=== PATIENT | female | born 1960 | race Caucasian/White ===

== ENCOUNTER 2019-03-15 10:24 | Outpatient (CLI) | payer MEDICARE, SELFPAY ==
--- NOTE | ~2019-03-15 | MM_ITS ---
EXAMINATION: MM screening mammo BI HISTORY: Screening mammogram TECHNIQUE: Full field digital craniocaudal and mediolateral oblique views of both breasts were obtain ed. CAD analysis was submitted and interpreted. COMPARISON: 08/10/2016 BREAST PARENCHYMAL COMPOSITION: The breasts are almost entirely fatty. FINDINGS: There is no evidence of suspicious mass, calcification, or architectural distortion in eit her breast to suggest malignancy. There has been no suspicious interval change. IMPRESSION: 1. No mammographic evidence of malignancy. Recommend routine screening mammography in one year. BI-RADS Category 1: Negative Reviewed, dictated and finalized at location A. F WRITER IMPRESSION: 1. No mammographic evidence of malignancy. Recommend routine screening mammogra phy in one year. BI-RADS Category 1: Negative
== END 2019-03-15 10:25 | disposition home or self-care (01) ==
LOC: ANHIMG 10:27
PROVIDERS: PCP Internal Medicine; Visit Provider Internal Medicine
DX: Z12.31 Encounter for screening mammogram for malignant neoplasm of breast (principal)
CPT/HCPCS: 77067

== ENCOUNTER 2019-10-12 11:31 | Outpatient (CLI) | payer MEDICARE, SELFPAY ==
--- NOTE | 2019-10-12 11:32 | ECG_ITS ---
Measurements Intervals [place] Rate: 64 P: 61 SD: 146 QRS: 22 QRSD: 94 T: 43 QT: 393 QTc: 407 Interpretive Statements SINUS RHYTHM DELAYED PRECORDIAL R/S TRANSITION LOW QRS VOLTAGE IN PRECORDIAL LEADS BASELINE ARTIFACT- I, II, III, AVR, AVL, AVF, V1-V6 BORDERLINE ECG Electronically Signed On 10-12-2019 12:25:31 CDT by Josh Roche D.O.
[2019-10-12 12:39] LABS: INR 2.1; Prothrombin Time 22.8 Seconds (11.1-14.7)
[2019-10-12 12:40] LABS: Partial Thromboplastin Time 30.9 SECONDS (22.3-36.8)
== END 2019-10-12 11:32 | disposition home or self-care (01) ==
LOC: ANHSURGERY 11:32
PROVIDERS: Anesthesiology; PCP Internal Medicine; Visit Provider Urology
DX: E78.5 Hyperlipidemia, unspecified (principal); N31.9 Neuromuscular dysfunction of bladder, unspecified; Z51.81 Encounter for therapeutic drug level monitoring; Z79.899 Other long term (current) drug therapy; Z01.812 Encounter for preprocedural laboratory examination; R94.31 Abnormal electrocardiogram [ECG] [EKG]
CPT/HCPCS: 36415; 85610; 85730; 87077; 87086; 87088; 87186; 93005

== ENCOUNTER 2019-10-20 00:26 | Outpatient (CLI) | payer MEDICARE, SELFPAY ==
[2019-10-21 13:40] LABS: SARS-CoV-2 RNA PCR Negative
== END 2019-10-20 00:27 | disposition home or self-care (01) ==
LOC: ANHCOVIDDT 00:26
PROVIDERS: PCP Internal Medicine; Visit Provider Urology
DX: Z01.812 Encounter for preprocedural laboratory examination (principal); Z20.828 Contact with and (suspected) exposure to other viral communicable diseases
CPT/HCPCS: 87635; C9803; U0003

== ENCOUNTER 2019-10-23 01:23 | Day surgery (SDC) | payer MEDICARE, SELFPAY ==
[2019-10-11 11:50] VITALS: BMI 41.5
--- NOTE | 2019-10-19 08:11 | PM.IMHP ---
H&P: HPI History of Present Illness Date/Time: 10/19/19 08:11 Chief complaint: neurogenic bladder Narrative: Rowan Morris is a 58 year old female with neurogenic bladder. She has been treated with Botox in the past. She would like a repeat trial of Botox. If unsuccessful she may pursue suprapubic tube. PMFSH Social History Social History Smoking status: Never smoker Spiritual care concerns: No Meds Home Medications and Allergies Home Medications Medication Instructions Recorded Confirmed Type Cognium 1 cap PO BID 10/10/19 History Ocrevus 1 dose IV .[id number] 10/10/19 10/11/19 History baclofen 30 mg PO BID 10/10/19 10/11/19 History calcium carbonate-vitamin D3 2 tablet PO DAILY 10/10/19 10/11/19 History [Calcium 600 + D(3)] cholecalciferol (vitamin D3) 125 mcg PO DAILY 10/10/19 10/11/19 History [Vitamin D3] escitalopram oxalate 10 mg PO DAILY 10/10/19 10/11/19 History ezetimibe 10 mg PO DAILY 10/10/19 10/11/19 History flaxseed oil 1,000 mg PO BID 10/10/19 10/11/19 History mirabegron [Myrbetriq] 50 mg PO DAILY 10/10/19 10/11/19 History vitamin B comp and C no.3 1 cap PO DAILY 10/10/19 10/11/19 History warfarin 1 mg PO DAILY 10/10/19 10/11/19 History warfarin 10 mg PO DAILY 10/10/19 10/11/19 History clonazepam 0.5 mg PO BID 10/11/19 10/11/19 History docusate sodium [Colace] 200 mg PO DAILY 10/11/19 10/11/19 History glycerin (adult) 1 supp [place] .Q3D 10/11/19 10/11/19 History ketoconazole 1 applic TOPICAL 3XW 10/11/19 10/11/19 History ketoconazole 1 applic TOPICAL 3XW 10/11/19 10/11/19 History multivitamin 2 tablet PO DAILY 10/11/19 10/11/19 History primidone 250 mg PO BID 10/11/19 10/11/19 History propranolol 20 mg PO BID 09/02/20 09/02/20 History Allergies Allergy/AdvReac Type Severity Reaction Status Date / Time Sulfa (Sulfonamide Allergy Mild WATSON, nausea Verified 10/10/19 14:56 Antibiotics) diphenhydramine Allergy Unknown Rash Verified 10/10/19 14:56 naproxen Allergy Unknown Dizziness Verified 10/10/19 14:56 Penicillins Allergy Unknown Rash Verified 10/10/19 14:56 Antihistamines - Alkylamine AdvReac Unknown HEADACHE, Verified 10/10/19 14:56 RASH ANTIHISTAMINE Allergy Unknown Headache, Uncoded 10/10/19 14:56 RASH Exam Const: General: no acute distress HENMT: Mouth: Yes moist mucous membranes Neck: Neck: supple Resp: Effort & Inspection: normal respiratory effort Skin: General skin exam: normal color Neuro: Other: Limited mobility Psych: Mental Status: mental status grossly normal Assessment and Plan Assessment and plan (1) Reflex neurogenic bladder: Code(s): N31.1 - Reflex neuropathic bladder, not elsewhere classified Status: Acute Assessment and Plan: cystoscopy with Botox 200 units. Will do in the operating room due to limited mobility.
--- NOTE | 2019-10-23 07:10 | WPDANESEPPF ---
Anes - Initial Pre Proc Eval Procedure: Operation Date: 10/23/19 08:00 Proposed Procedures p Cystoscopy, Botox Injection - Serg Jones MD Date/Time: 10/23/19 07:10 Surgeon: Serg Jones MD Pre Op Diagnosis: neurogenic bladder Patient Data Age: 58 Gender: F Height: 1.65 m Weight: 112.7 kg Allergies Allergy/AdvReac Type Severity Reaction Status Date / Time Sulfa (Sulfonamide Allergy Mild WATSON, nausea Verified 10/23/19 06:52 Antibiotics) diphenhydramine Allergy Unknown Rash Verified 10/23/19 06:52 naproxen Allergy Unknown Dizziness Verified 10/23/19 06:52 Penicillins Allergy Unknown Rash Verified 10/23/19 06:52 Antihistamines - Alkylamine AdvReac Unknown HEADACHE, Verified 10/23/19 06:52 RASH ANTIHISTAMINE Allergy Unknown Headache, Uncoded 10/23/19 06:52 RASH Home Medications Medication Instructions Recorded Confirmed Type Cognium 1 cap PO BID 10/10/19 History Ocrevus 1 dose IV .[id number] 10/10/19 10/11/19 History baclofen 30 mg PO BID 10/10/19 10/23/19 History calcium carbonate-vitamin D3 2 tablet PO DAILY 10/10/19 10/23/19 History [Calcium 600 + D(3)] cholecalciferol (vitamin D3) 125 mcg PO DAILY 10/10/19 10/23/19 History [Vitamin D3] escitalopram oxalate 10 mg PO DAILY 10/10/19 10/23/19 History ezetimibe 10 mg PO DAILY 10/10/19 10/23/19 History flaxseed oil 1,000 mg PO BID 10/10/19 10/23/19 History mirabegron [Myrbetriq] 50 mg PO DAILY 10/10/19 10/23/19 History vitamin B comp and C no.3 1 cap PO DAILY 10/10/19 10/23/19 History warfarin 1 mg PO DAILY 10/10/19 10/23/19 History warfarin 10 mg PO DAILY 10/10/19 10/23/19 History clonazepam 0.5 mg PO BID 10/11/19 10/23/19 History docusate sodium [Colace] 200 mg PO DAILY 10/11/19 10/23/19 History glycerin (adult) 1 supp [place] .Q3D 10/11/19 10/11/19 History ketoconazole 1 applic TOPICAL 3XW 10/11/19 10/23/19 History ketoconazole 1 applic TOPICAL 3XW 10/11/19 10/23/19 History multivitamin 2 tablet PO DAILY 10/11/19 10/23/19 History primidone 250 mg PO BID 10/11/19 10/23/19 History propranolol 20 mg PO BID 10/11/19 10/23/19 History Patient hx anesthesia problems: none Family hx anesthesia problems: none [facility] Past Medical History Medical History (Updated 10/23/19 @ 07:10 by Jamin Estevez DO) Morbid obesity Multiple sclerosis Neurogenic bladder Wheelchair bound Social History Social History Smoking status: Never smoker Spiritual care concerns: No Anes - Eval Final PreProcedure Day of Procedure 10/23/19 07:10 Patient weight: morbidly obese Heart: regular rate and rhythm Lungs: clear to auscultation and normal air movement Airway: Mallampati scale class IV and special considerations (small mouth) poor opening Neurological: alert and oriented Last oral intake: >/= 8 hours ASA classification: IV Emergent: no Anesthetic plan: proceed Anesthesia type and monitoring: general GIVS and standard monitoring Informed Consent: The patient's anesthetic plan and its attendant risks and benefits were discussed with the patient/family/POA. Questions were solicited and answers provided to the satisfaction of the patient/family/POA.
--- NOTE | 2019-10-23 07:25 | WPDHPUPDATE1 ---
History and Physical Update Update Date/Time: 10/23/19 07:25 History and Physical has been reviewed, including an updated exam of the patient. There are NO changes in the patient's condition. Risks, benefits, and alternatives have been discussed and questions answered. Patient agrees to proceed with procedure.
[2019-10-23] MEDS: LACTATED RINGERS 1,000 ML 30 ML IV CONT (07:39)
[2019-10-23 07:44] VITALS: BP 123/72; PULSE 63; RESP 20; TEMP 35.5; O2SAT 98
--- NOTE | 2019-10-23 07:46 | SUR.PREOP ---
0630; PT IN MOTORIZED W/C. CAREGIVER SHYANN IS HERE. CAREGIVER AND PT DO NOT WANT TO USE SHERLEY LIFT. CAREGIVER TRANSFERRED PT TO STRETCHER.
[2019-10-23 08:00] LABS: INR 1.2; Prothrombin Time 14.7 Seconds (11.1-14.7)
[2019-10-23] MEDS: ceFAZolin 2 GM/D5W 50 ML 2 GM/50 ML BAG IVPB (08:02)
[2019-10-23] MEDS: BOTULINUM TOXIN TYPE A (*SPLP) 100 UNITS VIAL 200 UNITS IM (08:16)
--- NOTE | 2019-10-23 08:23 | PM.PROC ---
Procedure Note - Detailed Date of procedure: 10/23/19 Pre-op diagnosis: neurogenic bladder Post-op diagnosis: same Procedure performed: Cystoscopy with injection of Botox 200 units Description of procedure: She was correctly identified. Informed was obtained. She from the operating room. She was given mac anesthesia. Placed in dorsal lithotomy position. Pressure points were padded. She was given appropriate perioperative antibiotics. Time-out performed. Cystoscopy revealed moderate trabeculations. No tumors or other abnormalities. I mixed 200 units of Botox in 20 cc preservative-free saline. I injected throughout the bladder and the muscular layer. Additional cc was used to clear the needle. There is minimal bleeding from the injection sites. Her bladder was drained. She was awakened and transferred to the PACU in stable condition. Implants: None Anesthesia: MAC Surgeon: Serg Jones MD Estimated blood loss (mL): 1 Drains: No Packing: No Pathology: none sent Complications: No immediate complications Condition: stable Disposition: PACU
[2019-10-23] MEDS: LIDOCAINE HCL 2% GEL UROJET 10 ML PKG MUCOUS MEM (08:25)
[2019-10-23 08:31] VITALS: BP 118/74; PULSE 70; RESP 16; O2SAT 97
[2019-10-23 09:00] VITALS: BP 129/80; PULSE 64; RESP 16; O2SAT 98
== END 2019-10-23 09:24 | disposition home or self-care (01) ==
PROVIDERS: PCP Internal Medicine; Visit Provider Urology
PROC: 3E0K8GC Introduction of Other Therapeutic Substance into Genitourinary Tract, Via Natural or Artificial Opening Endoscopic (ICD-10-PCS; CPT 52287; principal; 2019-10-23 08:00)
DX: N31.9 Neuromuscular dysfunction of bladder, unspecified (principal); G35 Multiple sclerosis; Z79.01 Long term (current) use of anticoagulants; Z99.3 Dependence on wheelchair; E66.01 Morbid (severe) obesity due to excess calories; Z68.41 Body mass index [BMI] 40.0-44.9, adult
CPT/HCPCS: 52287; 36415; 85610; A9270; J0585; J0690; J2704; J7120

== ENCOUNTER → 2020-08-06 01:21 | Outpatient (CLI) | payer MEDICARE, SELFPAY ==
[2020-08-06 17:12] LABS: SARS-CoV-2 RNA PCR Negative
== END ==
PROVIDERS: PCP Internal Medicine; Visit Provider Urology
DX: Z01.812 Encounter for preprocedural laboratory examination (principal); Z20.822 Contact with and (suspected) exposure to COVID-19
CPT/HCPCS: C9803; U0003; U0005

== ENCOUNTER 2020-08-06 09:42 | Outpatient (CLI) | payer MEDICARE, SELFPAY ==
[2020-08-06 10:47] LABS: INR 1.7
[2020-08-06 10:50] LABS: Partial Thromboplastin Time 23.9 SECONDS (22.3-36.8)
== END 2020-08-06 09:43 | disposition home or self-care (01) ==
LOC: ANHSURGERY 09:47
PROVIDERS: Anesthesiology; PCP Internal Medicine; Visit Provider Urology
DX: I82.409 Acute embolism and thrombosis of unspecified deep veins of unspecified lower extremity (principal); N31.1 Reflex neuropathic bladder, not elsewhere classified; Z01.818 Encounter for other preprocedural examination
CPT/HCPCS: 36415; 85610; 85730; 87077; 87086; 87088; 87186; C9803; U0003; U0005

== ENCOUNTER 2020-08-09 01:01 | Day surgery (SDC) | payer MEDICARE, SELFPAY ==
[2020-07-31 09:39] VITALS: BMI 38.5
--- NOTE | 2020-08-05 19:05 | PM.IMHP ---
H&P: HPI History of Present Illness Date/Time: 08/05/20 19:05 59 yo with NGB Botox 200U and CIC Chief Complaint: NBG Review of Systems Review of Systems: All systems reviewed & are unremarkable except as noted in HPI and below [facility] Past Medical History Medical History (Updated 08/05/20 @ 19:07 by Serg Jones MD) Morbid obesity Multiple sclerosis Neurogenic bladder Wheelchair bound Social History Social History Smoking status: Former smoker Additional smoking assessment comments: SOCIAL SMOKER QUIT > 35YRS AGO Alcohol intake: never Substance use: never Spiritual care concerns: No Meds Home Medications and Allergies Home Medications Medication Instructions Recorded Confirmed Type Cognium 1 cap PO BID 10/10/19 07/31/20 History Myrbetriq 50 mg PO DAILY 10/10/19 07/31/20 History Ocrevus 1 dose IV .[id number] 10/10/19 07/31/20 History baclofen 30 mg PO BID 10/10/19 07/31/20 History calcium carbonate-vitamin D3 2 tablet PO DAILY 10/10/19 07/31/20 History [Calcium 600 + D(3)] cholecalciferol (vitamin D3) 125 mcg PO DAILY 10/10/19 07/31/20 History [Vitamin D3] escitalopram oxalate 10 mg PO DAILY 10/10/19 07/31/20 History ezetimibe 10 mg PO DAILY 10/10/19 07/31/20 History flaxseed oil 1,000 mg PO BID 10/10/19 07/31/20 History vitamin B comp and C no.3 1 cap PO DAILY 10/10/19 07/31/20 History warfarin 10 mg PO DAILY 10/10/19 07/31/20 History clonazepam 0.5 mg PO BID 10/11/19 07/31/20 History docusate sodium [Colace] 200 mg PO DAILY 10/11/19 07/31/20 History glycerin (adult) 1 supp [place] .Q3D 10/11/19 07/31/20 History ketoconazole 1 applic TOPICAL 3XW 10/11/19 07/31/20 History ketoconazole 1 applic TOPICAL 3XW 10/11/19 07/31/20 History primidone 250 mg PO BID 10/11/19 07/31/20 History propranolol 20 mg PO BID 10/11/19 07/31/20 History Allergies Allergy/AdvReac Type Severity Reaction Status Date / Time Sulfa (Sulfonamide Allergy Mild WATSON, nausea Verified 07/31/20 08:42 Antibiotics) diphenhydramine Allergy Unknown Rash Verified 07/31/20 08:42 naproxen Allergy Unknown Dizziness Verified 07/31/20 08:42 Penicillins Allergy Unknown Rash Verified 07/31/20 08:42 Antihistamines - Alkylamine AdvReac Unknown HEADACHE, Verified 07/31/20 08:42 RASH ANTIHISTAMINE Allergy Unknown Headache, Uncoded 07/31/20 08:42 RASH Exam Const: General: cooperative HENMT: Head: normal to inspection Eyes: General: appearance normal, both eyes and all related structures Resp: Effort & Inspection: normal respiratory effort and able to speak in complete sentences Back/Spine/Pelvis: Back: no CVA tenderness Assessment and Plan Assessment and plan (1) Neurogenic bladder: Code(s): N31.9 - Neuromuscular dysfunction of bladder, unspecified Status: Acute Assessment and Plan: botox 200U
--- NOTE | 2020-08-09 07:20 | WPDHPUPDATE1 ---
History and Physical Update Update Date/Time: 08/09/20 07:20 History and Physical has been reviewed, including an updated exam of the patient. There are NO changes in the patient's condition. Risks, benefits, and alternatives have been discussed and questions answered. Patient agrees to proceed with procedure.
[2020-08-09 08:12] VITALS: BP 109/43; PULSE 65; RESP 20; TEMP 36.4; O2SAT 100
[2020-08-09] MEDS: LACTATED RINGERS 1,000 ML 30 ML IV CONT (08:35)
[2020-08-09 08:52] LABS: INR 1.2; Prothrombin Time 14.9 Seconds (11.1-14.7)
--- NOTE | 2020-08-09 09:01 | WPDANESEPPF ---
Anes - Initial Pre Proc Eval Procedure: Operation Date: 08/09/20 10:00 Proposed Procedures p Cystoscopy, Botox Injection - Serg Jones MD Date/Time: 08/09/20 09:01 Surgeon: Serg Jones MD Pre Op Diagnosis: reflex neuropathic bladder Patient Data Age: 59 Gender: F Height: 1.65 m Weight: 105 kg Allergies Allergy/AdvReac Type Severity Reaction Status Date / Time Sulfa (Sulfonamide Allergy Mild WATSON, nausea Verified 07/31/20 08:42 Antibiotics) naproxen Allergy Unknown CANNOT Verified 08/09/20 08:50 TAKE R/T WARFARIN Penicillins Allergy Unknown Rash Verified 08/09/20 08:50 Home Medications Medication Instructions Recorded Confirmed Type Cognium 1 cap PO BID 10/10/19 08/09/20 History Myrbetriq 50 mg PO DAILY 10/10/19 08/09/20 History Ocrevus 1 dose IV .[id number] 10/10/19 07/31/20 History baclofen 30 mg PO BID 10/10/19 08/09/20 History calcium carbonate-vitamin D3 2 tablet PO DAILY 10/10/19 08/09/20 History [Calcium 600 + D(3)] cholecalciferol (vitamin D3) 125 mcg PO DAILY 10/10/19 08/09/20 History [Vitamin D3] escitalopram oxalate 10 mg PO DAILY 10/10/19 08/09/20 History ezetimibe 10 mg PO DAILY 10/10/19 08/09/20 History flaxseed oil 1,000 mg PO BID 10/10/19 08/09/20 History vitamin B comp and C no.3 1 cap PO DAILY 10/10/19 08/09/20 History warfarin 10 mg PO DAILY 10/10/19 08/09/20 History clonazepam 0.5 mg PO BID 10/11/19 08/09/20 History docusate sodium [Colace] 200 mg PO DAILY 10/11/19 08/09/20 History glycerin (adult) 1 supp [place] .Q3D 10/11/19 08/09/20 History ketoconazole 1 applic TOPICAL 3XW 10/11/19 08/09/20 History ketoconazole 1 applic TOPICAL 3XW 10/11/19 08/09/20 History primidone 250 mg PO BID 10/11/19 08/09/20 History ciprofloxacin HCl 500 mg PO BID 08/09/20 08/09/20 History propranolol 60 mg PO DAILY 08/09/20 08/09/20 History Laboratory Tests 08/09/20 08:37 PT Pending INR Pending Patient hx anesthesia problems: none Family hx anesthesia problems: none PMFSH Past Medical History Medical History Morbid obesity Multiple sclerosis Neurogenic bladder Wheelchair bound Surgical History Surgical History (Updated 08/09/20 @ 09:01 by Hernan Palmer MD) Hx of cystoscopy Social History Social History Smoking status: Former smoker Additional smoking assessment comments: SOCIAL SMOKER QUIT > 35YRS AGO Alcohol intake: never Substance use: never Living arrangements: alone Spiritual care concerns: No Anes - Eval Final PreProcedure Day of Procedure 08/09/20 09:01 Patient weight: obese Heart: regular rate and rhythm Lungs: clear to auscultation Airway: Mallampati scale class II Neurological: alert and oriented Last oral intake: >/= 8 hours ASA classification: IV Emergent: no Anesthetic plan: proceed Anesthesia type and monitoring: general GIVS and standard monitoring Informed Consent: The patient's anesthetic plan and its attendant risks and benefits were discussed with the patient/family/POA. Questions were solicited and answers provided to the satisfaction of the patient/family/POA.
[2020-08-09] MEDS: ceFAZolin 2 GM/D5W 50 ML 2 GM/50 ML BAG IVPB (09:58)
[2020-08-09] MEDS: BOTULINUM TOXIN TYPE A (*SPLP) 100 UNITS VIAL 200 UNITS XX (10:18)
[2020-08-09] MEDS: LIDOCAINE HCL 2% GEL UROJET 10 ML PKG MUCOUS MEM (10:21)
[2020-08-09 10:28] VITALS: BP 100/44; PULSE 70; RESP 16; O2SAT 97
--- NOTE | 2020-08-09 10:41 | W.PM.PROC2 ---
Procedure Note - Detailed Date of Procedure 08/09/20 Pre-op Diagnosis reflex neuropathic bladder Post-op Diagnosis same Procedure Performed cystoscopy with injection of botulinum toxin a 200 units Surgeon Serg Jones MD Anesthesia MAC Indications this is a patient with urinary incontinence. They are here today for a Botox injection Description of Procedure there correctly identified. Informed consent obtained. There brought to the operating room. There given mac anesthesia. There prepped and draped in sterile fashion. There given appropriate perioperative antibiotics. Time-out performed. Examination of the bladder revealed no significant abnormalities. I mixed 200 units of Botox with 20 mL of saline. It was injected throughout the bladder in the sub urothelial the muscular layer. Additional cc was used to clear the needle. the bladder was drained. There is minimal bleeding under low insufflation pressures. There awakened and transferred to PACU in stable condition. Implants None Estimated Blood Loss 1 Drains No Packing No Pathology none sent Complications No immediate complications Condition stable Disposition PACU
[2020-08-09 10:58] VITALS: BP 102/61; PULSE 65; RESP 20; O2SAT 97
== END 2020-08-09 11:10 | disposition home or self-care (01) ==
PROVIDERS: Anesthesiology; PCP Internal Medicine; Visit Provider Urology
PROC: 3E0K8GC Introduction of Other Therapeutic Substance into Genitourinary Tract, Via Natural or Artificial Opening Endoscopic (ICD-10-PCS; CPT 52287; principal; 2020-08-09 10:00)
DX: N31.1 Reflex neuropathic bladder, not elsewhere classified (principal); N39.3 Stress incontinence (female) (male); Z79.01 Long term (current) use of anticoagulants; G35 Multiple sclerosis; E66.9 Obesity, unspecified; Z68.38 Body mass index [BMI] 38.0-38.9, adult; Z87.891 Personal history of nicotine dependence
CPT/HCPCS: 52287; 36415; 85610; A9270; J0585; J0690; J2250; J2704; J3010; J7120

== ENCOUNTER 2021-03-18 11:16 | Outpatient (CLI) | payer MEDICARE, SELFPAY ==
[2021-03-18 12:24] LABS: INR 2.2; Prothrombin Time 23.8 Seconds (11.1-14.7)
== END 2021-03-18 11:17 | disposition home or self-care (01) ==
LOC: ANHSURGERY 11:21
PROVIDERS: Anesthesiology; PCP Internal Medicine; Visit Provider Urology
DX: N31.9 Neuromuscular dysfunction of bladder, unspecified (principal); Z79.01 Long term (current) use of anticoagulants; Z01.818 Encounter for other preprocedural examination
CPT/HCPCS: 36415; 85610; 85730; 87077; 87086; 87186

== ENCOUNTER 2021-03-21 02:57 | Day surgery (SDC) | payer MEDICARE, SELFPAY ==
--- NOTE | 2021-03-13 14:57 | PC.NURSE ---
Report to the Outpatient Waiting Room, entrance under the green pavilion located off [facility], at time _0730_on date 03/21/21_. OR Time: __929_. - You will be asked a series of questions to screen for COVID 19 for your protection. - A mask is required within the hospital. - No visitors are allowed at this time. YOUR [employer]ESSION[employer], SHYANN WILL BE ABLE TO BE WITH YOU TO ASSIST YOU Preoperative COVID Testing Requirements: No COVID Test needed if: (proof is required; if not received patient will have Rapid Test prior to entry) YOU DO NOT REQUIRE A COVID TEST!! - Patient has received COVID Vaccine at least 14 days prior to procedure date or - Patient has positive COVID test result within last 90 days of surgery date. COVID Test needed if above criteria is not met If not COVID vaccinated a COVID test must be conducted within 72 hours of surgery and patient is asked to isolate self from time of testing until procedure. You will go to the [facility] for your COVID testing. The [facility] is located at the corner of [address] from [facility]. You will only be called if COVID results are positive and your surgeon may reschedule your elective surgery date. Patients may have clear liquids (water, carbonated beverages, clear teas, apple juice) until 3 hours prior to surgery with a maximum of 20 ounces. - No food from midnight until time of surgery - Infants may have breast milk until 4 hours before surgery, formula 6 hours prior to surgery. - Children will be allowed to drink immediately following surgery. If applicable, please bring a bottle or sippy cup to assist with drinking. Juice, water, soda, and popsicles are readily available. For infants on formula, please bring formula the day of surgery. Pacifiers are allowed. Take the following medications with a SIP of water the morning of surgery: PROPANOLOL, ESCITALOPRAM, CLONAZEPAM, BACLOFEN Medications to discontinue per physician ____STOP WARFARIN __STOP ALL SUPPLEMENTS AND VITAMINS Date to take last dose__03/18/21 Please no make-up, nail frisian, hairspray, perfume, deodorant, or body powder the day of surgery. No jewelry (including any body piercings) or valuables the day of surgery, leave them at home. Please take a shower or bath the night before, or the morning of, surgery with an antibacterial soap. Wear comfortable, loose fitting clothing. Children are encouraged to wear pajamas. - Jewelry must be removed prior to entering the operating room. Rings and piercings that are not removed may be cut off. - The hospital will not accept responsibility for valuables. - Please leave all valuables, including medications, at home the day of surgery. If you are going home after surgery, a licensed jitney driver must drive you home. - NO public transportation without another adult. - We recommend that an adult stay with you for 24 hours following discharge. - We also recommend that you do not drive, make important decision, drink alcoholic beverages, or take any drugs that were not prescribed by your health care provider for at least 24 hours after your discharge time. For Pediatric surgeries, we recommend two adults accompany the child home (only one inside the building at this time). Follow any additional instructions given to you from your surgeon. Telephone instructions given to HERO and asked if any additional questions and then verbalized understanding. Patient advised to call surgeon office or pre surgery nurse liaison [phone] if any additional questions.
--- NOTE | 2021-03-16 13:06 | PM.IMHP ---
H&P: HPI History of Present Illness Date/Time: 03/16/21 13:06 Neurogenic bladder. Botox and CIC Chief Complaint: NGB Review of Systems Review of Systems: All systems reviewed & are unremarkable except as noted in HPI and below PMFSH Past Medical History Medical History Morbid obesity Multiple sclerosis Neurogenic bladder Wheelchair bound Surgical History Surgical History Hx of cystoscopy Social History Social History Smoking status: Never smoker Additional smoking assessment comments: SOCIAL SMOKER QUIT > 35YRS AGO Alcohol intake: never Substance use: never Substance use type: does not use Spiritual care concerns: No Meds Home Medications and Allergies Home Medications Medication Instructions Recorded Confirmed Type Cognium 1 cap PO BID 10/10/19 03/13/21 History Myrbetriq 50 mg PO DAILY 10/10/19 03/13/21 History Ocrevus 1 dose IV .[id number] 10/10/19 03/13/21 History baclofen 30 mg PO BID 10/10/19 03/13/21 History calcium carbonate-vitamin D3 2 tablet PO DAILY 10/10/19 03/13/21 History [Calcium 600 + D(3)] cholecalciferol (vitamin D3) 125 mcg PO DAILY 10/10/19 03/13/21 History [Vitamin D3] escitalopram oxalate 10 mg PO DAILY 10/10/19 03/13/21 History ezetimibe 10 mg PO DAILY 10/10/19 03/13/21 History flaxseed oil 1,000 mg PO BID 10/10/19 03/13/21 History vitamin B comp and C no.3 1 cap PO DAILY 10/10/19 03/13/21 History warfarin 10 mg PO DAILY 10/10/19 03/13/21 History clonazepam 0.5 mg PO BID 10/11/19 03/13/21 History docusate sodium [Colace] 200 mg PO DAILY 10/11/19 03/13/21 History glycerin (adult) 1 supp [place] .Q3D 10/11/19 03/13/21 History ketoconazole 1 applic TOPICAL 3XW 10/11/19 03/13/21 History ketoconazole 1 applic TOPICAL 3XW 10/11/19 03/13/21 History primidone 250 mg PO BID 10/11/19 03/13/21 History propranolol 60 mg PO DAILY 08/09/20 03/13/21 History Keto Inforcer 1 tab-cap BYMOUTH TID 03/13/21 03/13/21 History Allergies Allergy/AdvReac Type Severity Reaction Status Date / Time Sulfa (Sulfonamide Allergy Mild WATSON, nausea Verified 07/31/20 08:42 Antibiotics) naproxen Allergy Unknown CANNOT Verified 08/09/20 08:50 TAKE R/T WARFARIN Penicillins Allergy Unknown Rash Verified 08/09/20 08:50 Exam Narrative: NAD limited mobility A+Ox3 Assessment and Plan Assessment and plan (1) Reflex neurogenic bladder: Code(s): N31.1 - Reflex neuropathic bladder, not elsewhere classified Status: Acute Assessment and Plan: botox 200U
--- NOTE | 2021-03-21 07:13 | WPDHPUPDATE1 ---
History and Physical Update Update Date/Time: 03/21/21 07:13 History and Physical has been reviewed, including an updated exam of the patient. There are NO changes in the patient's condition. Risks, benefits, and alternatives have been discussed and questions answered. Patient agrees to proceed with procedure.
--- NOTE | 2021-03-21 08:03 | WPDANESEPP ---
Anes - Eval Pre Procedure Procedure: Operation Date: 03/21/21 09:45 Proposed Procedures p Cystoscopy, Botox Injection - Serg Beverly Jones MD Date/Time: 03/21/21 08:03 Pre Op Diagnosis: reflex neuropathic bladder Patient Data Age: 60 Gender: F Height: 1.66 m Weight: Allergies Allergy/AdvReac Type Severity Reaction Status Date / Time Sulfa (Sulfonamide Allergy Mild WATSON, nausea Verified 07/31/20 08:42 Antibiotics) naproxen Allergy Unknown CANNOT Verified 08/09/20 08:50 TAKE R/T WARFARIN Penicillins Allergy Unknown Rash Verified 08/09/20 08:50 Home Medications Medication Instructions Recorded Confirmed Type Cognium 1 cap PO BID 10/10/19 03/13/21 History Myrbetriq 50 mg PO DAILY 10/10/19 03/13/21 History Ocrevus 1 dose IV .[id number] 10/10/19 03/13/21 History baclofen 30 mg PO BID 10/10/19 03/13/21 History calcium carbonate-vitamin D3 2 tablet PO DAILY 10/10/19 03/13/21 History [Calcium 600 + D(3)] cholecalciferol (vitamin D3) 125 mcg PO DAILY 10/10/19 03/13/21 History [Vitamin D3] escitalopram oxalate 10 mg PO DAILY 10/10/19 03/13/21 History ezetimibe 10 mg PO DAILY 10/10/19 03/13/21 History flaxseed oil 1,000 mg PO BID 10/10/19 03/13/21 History vitamin B comp and C no.3 1 cap PO DAILY 10/10/19 03/13/21 History warfarin 10 mg PO DAILY 10/10/19 03/13/21 History clonazepam 0.5 mg PO BID 10/11/19 03/13/21 History docusate sodium [Colace] 200 mg PO DAILY 10/11/19 03/13/21 History glycerin (adult) 1 supp AK .Q3D 10/11/19 03/13/21 History ketoconazole 1 applic TOPICAL 3XW 10/11/19 03/13/21 History ketoconazole 1 applic TOPICAL 3XW 10/11/19 03/13/21 History primidone 250 mg PO BID 10/11/19 03/13/21 History propranolol 60 mg PO DAILY 08/09/20 03/13/21 History Keto Inforcer 1 tab-cap BYMOUTH TID 03/13/21 03/13/21 History Patient hx anesthesia problems: none Family hx anesthesia problems: none Results Review: All pre-operative results and documents have been reviewed as part of the pre-operative evaluation. [facility] Past Medical History Medical History Hyperlipidemia Morbid obesity Multiple sclerosis Neurogenic bladder Wheelchair bound Surgical History Surgical History Hx of cystoscopy Social History Social History Smoking status: Never smoker Additional smoking assessment comments: SOCIAL SMOKER QUIT > 35YRS AGO Alcohol intake: never Substance use: never Substance use type: does not use Living arrangements: with family Spiritual care concerns: No Exam Day of Procedure 03/21/21 08:03 Patient weight: obese Airway: Mallampati scale class II
--- NOTE | 2021-03-21 08:06 | WPDANESEFPP ---
Anes - Eval Final PreProcedure Day of Procedure 03/21/21 08:06 Patient weight: obese Heart: regular rate and rhythm Lungs: clear to auscultation Airway: Mallampati scale class II Neurological: alert and oriented Last oral intake: >/= 8 hours ASA classification: IV Emergent: no Anesthetic plan: proceed Anesthesia type and monitoring: general GIVS Other findings: GIVS Results Review: All pre-operative results and documents have been reviewed as part of the pre-operative evaluation. Informed Consent: The patient's anesthetic plan and its attendant risks and benefits were discussed with the patient/family/POA. Questions were solicited and answers provided to the satisfaction of the patient/family/POA.
[2021-03-21] MEDS: LACTATED RINGERS 1,000 ML 30 ML IV CONT (08:15)
[2021-03-21 08:39] LABS: INR 1.1; Prothrombin Time 13.7 Seconds (11.1-14.7)
[2021-03-21 09:25] VITALS: BP 105/56; PULSE 62; RESP 20; TEMP 36.2; O2SAT 100
--- NOTE | 2021-03-21 09:42 | SUR.PREOP ---
0750-CAREGIVER WITH PT, PT REFUSES USE OF SHERLEY LIFT, INSISTENT THAT CAREGIVER LIFT HER FROM PT MOTOR CHAIR TO STRETCHER, PT UNDERSTANDS HOSPITAL LIFT POLICY AND ACCEPTS RESPONSIBILITY FOR CAREGIVER TRANSFER.
[2021-03-21] MEDS: ceFAZolin 2 GM/D5W 50 ML 2 GM/50 ML BAG IVPB (09:59)
[2021-03-21] MEDS: BOTULINUM TOXIN TYPE A (*SPLP) 100 UNITS VIAL 200 UNITS XX (10:15)
[2021-03-21] MEDS: LIDOCAINE HCL 2% GEL UROJET 10 ML PKG MUCOUS MEM (10:16)
--- NOTE | 2021-03-21 10:29 | W.PM.PROC2 ---
Procedure Note - Detailed Date of Procedure 03/21/21 Pre-op Diagnosis reflex neuropathic bladder Post-op Diagnosis same Procedure Performed cystoscopy with injection of botulinum toxin a 200 units Surgeon Serg Jones MD Anesthesia MAC Indications this is a patient with urinary incontinence. They are here today for a Botox injection Description of Procedure there correctly identified. Informed consent obtained. There brought to the operating room. Antibiotics were started at home before the surgery for a positive urine culture. She was given appropriate perioperative you antibiotics here in the OR. There given mac anesthesia. There prepped and draped in sterile fashion. Time-out performed. Examination of the bladder revealed a small capacity trabeculated bladder.. I mixed 200 units of Botox with 20mL of saline. It was injected throughout the bladder in the sub urothelial the muscular layer. Additional cc was used to clear the needle. the bladder was drained. There is minimal bleeding under low insufflation pressures. There awakened and transferred to PACU in stable condition. Implants None Estimated Blood Loss 1 Drains No Packing No Pathology none sent Complications No immediate complications Condition stable Disposition PACU
[2021-03-21 10:30] VITALS: BP 92/57; PULSE 66; RESP 14; O2SAT 96
[2021-03-21 11:00] VITALS: BP 98/64; PULSE 70; RESP 16
== END 2021-03-21 11:15 | disposition home or self-care (01) ==
PROVIDERS: Anesthesiology; PCP Internal Medicine; Visit Provider Urology
PROC: 3E0K8GC Introduction of Other Therapeutic Substance into Genitourinary Tract, Via Natural or Artificial Opening Endoscopic (ICD-10-PCS; CPT 52287; principal; 2021-03-21 09:45)
DX: N31.1 Reflex neuropathic bladder, not elsewhere classified (principal); G35 Multiple sclerosis; Z99.3 Dependence on wheelchair; E66.9 Obesity, unspecified; Z68.37 Body mass index [BMI] 37.0-37.9, adult; Z79.01 Long term (current) use of anticoagulants; Z79.899 Other long term (current) drug therapy
CPT/HCPCS: 52287; 36415; 85610; 85730; 87077; 87086; 87186; A9270; J0585; J0690; J2250; J2704; J3010; J7120

== ENCOUNTER 2021-09-01 11:39 | Inpatient (IN) | payer MEDICARE, SELFPAY ==
--- NOTE | ~2021-09-01 | CT_ITS ---
EXAMINATION: CT abdomen pelvis w con DATE: 09/01/2021 14:03 INDICATION: abd pain TECHNIQUE: Computed tomography (CT) of the abdomen and pelvis was performed with 100 mL Omnipaque-300 intravenous contrast. Automated exposure control and iterative reconstruction technique were employe d. The dose-length product was 1229.32 mGy-cm. COMPARISON: None. FINDINGS: Lower thorax: Unremarkable Liver: Normal. Biliary/Gallbladder: Cholelithiasis. Minimal gallbladder wall thickening. No bile duct dilation. Pancreas: No mass or duct dilation. Spleen: Normal. Adrenals:No mass. Kidneys: No mass, stone, or hydronephrosis. GI tract: No small or large bowel dilation. Normal appendix. Mesentery/Peritoneum: No ascites, mass, or free air. Retroperitoneum: No mass. Pelvis: Bladder wall edema. Uterus absent. Soft Tissues: Right gluteal dermal thickening and subcutaneous induration. Bilateral flank edema. Bones: Multilevel concave superior endplate deformities with height loss, most evident at T12, L4, a nd L5. IMPRESSION: Cholelithiasis, with mild pericholecystic inflammatory change which may represent early/mild cholecys titis in the appropriate clinical context. Possible right gluteal skin lesion (such as scar, ulcer, e tc.), correlate clinically. Multilevel mild-moderate osteoporotic vertebral body compression fracture s, likely chronic unless accompanied by acute pain/tenderness. Reviewed, dictated and finalized at location K. IMPRESSION: Cholelithiasis, with mild pericholecystic inflammatory change which may represe nt early/mild cholecystitis in the appropriate clinical context. Possible right gluteal skin lesion (such as scar, ulcer, etc.), correlate clinically. Multile nita mild-moderate osteoporotic vertebral body compression fractures, likely chr onic unless accompanied by acute pain/tenderness.
[2021-09-01 11:54] VITALS: BP 121/65; RESP 16; TEMP 36.4; O2SAT 100
--- NOTE | 2021-09-01 12:50 | ED.ABDPAIN ---
HPI - Abdominal Pain General Chief Complaint: Abdominal Pain Stated Complaint: Abdominal Pain Time Seen by Provider: 09/01/21 12:15 Source: RN notes reviewed History of Present Illness HPI narrative: Presents emergency room from home for abdominal pain. Patient states pain began yesterday evening the pain is described as sharp and stabbing does not radiate associate with nausea patient denies any vomiting she denies any fevers or chills chest pain shortness of breath diarrhea or any other symptoms. Per the patient and family patient does have a history of constipation. Patient states the pain feels better when she sits up and gets worse when she lays back patient did not take any medication for the pain Related Data Home Medications Medication Instructions Recorded Confirmed Cognium 1 cap PO BID 10/10/19 03/21/21 Ocrevus 1 dose IV .[id number] 10/10/19 03/21/21 baclofen 10 mg tablet 30 mg PO BID 10/10/19 03/21/21 calcium carbonate 600 mg-vitamin 2 tablet PO DAILY 10/10/19 03/21/21 D3 5 mcg (200 unit) tablet (Calcium 600 + D(3)) cholecalciferol (vitamin D3) 125 125 mcg PO DAILY 10/10/19 03/21/21 mcg (5,000 unit) tablet (Vitamin D3) escitalopram oxalate 10 mg tablet 10 mg PO DAILY 10/10/19 03/21/21 ezetimibe 10 mg tablet 10 mg PO DAILY 10/10/19 03/21/21 flaxseed oil 1,000 mg capsule 1,000 mg PO BID 10/10/19 03/21/21 mirabegron 50 mg tablet,extended 50 mg PO DAILY 10/10/19 03/21/21 release 24 hr (Myrbetriq) vitamin B comp and C no.3 15 mg-10 1 cap PO DAILY 10/10/19 03/21/21 mg-50 mg-5 mg-300 mg capsule warfarin 10 mg tablet 11 mg PO DAILY 10/10/19 03/21/21 clonazepam 0.5 mg tablet 0.5 mg PO BID 10/11/19 03/21/21 docusate sodium 100 mg capsule 200 mg PO DAILY 10/11/19 03/21/21 (Colace) glycerin (adult) 1 supp RECTAL .Q3D 10/11/19 03/21/21 ketoconazole 2 % shampoo 1 applic topical 3XW 10/11/19 03/21/21 ketoconazole 2 % topical cream 1 applic topical 3XW 10/11/19 03/21/21 primidone 250 mg tablet 250 mg PO BID 10/11/19 03/21/21 propranolol 60 mg capsule,24 60 mg PO DAILY 08/09/20 03/21/21 hr,extended release Allergies Allergy/AdvReac Type Severity Reaction Status Date / Time Sulfa (Sulfonamide Allergy Mild WATSON, nausea Verified 09/01/21 12:26 Antibiotics) naproxen Allergy Unknown CANNOT Verified 09/01/21 12:26 TAKE R/T WARFARIN Penicillins Allergy Unknown Rash Verified 09/01/21 12:26 Review of Systems Review of Systems: Gen.: Denies fevers or chills ENT: Denies congestion Respiratory: Denies shortness of breath or cough CV: Denies chest pain or palpitations GI: See HPI Musculoskeletal: Denies back pain or muscle pain Neuro: Denies numbness, tingling, weakness or focal weakness Skin: Denies rash Except as documented, all other systems reviewed and negative [facility] Past Medical History Medical History Hyperlipidemia Morbid obesity Multiple sclerosis Neurogenic bladder Wheelchair bound Surgical History Surgical History Hx of cystoscopy Social History Social History Smoking status: Never smoker Additional smoking assessment comments: SOCIAL SMOKER QUIT > 35YRS AGO Alcohol intake: never Substance use: never Substance use type: does not use Spiritual care concerns: No Exam Narrative: APPEARANCE: No acute distress, nontoxic, resting in bed HEENT: Normocephalic, atraumatic, OMM RESPIRATORY: No respiratory distress, clear to auscultation bilaterally with no rhonchi wheezing or rales CARDIOVASCULAR: RRR s murmur ABDOMINAL: Soft nondistended tender palpation right upper quadrant right lower quadrant no tenderness left upper quadrant left lower quadrant no rebound or guarding MUSCULOSKELETAl: Moves all extremities. No clubbing, cyanosis or edema. NEURO: Awake and alert. Following commands, speech normal, no f
[2021-09-01 13:23] LABS: Basophils Percent Auto 0.3 % (0.2-1.2); Eosinophils Percent Auto 0.3 % (0-4.4); Hematocrit 49.4 % (37.0-47.0); Hemoglobin 16.2 g/dL (12.0-15.0); Immature Granulocyte Absolute 0.05 K/mm3 (0.00-0.031); Immature Granulocyte Percent A 0.4 % (0-0.5); Lymphocytes Absolute Auto 0.75 K/mm3 (0.9-3.2); Lymphocytes Percent Auto 5.3 % (18.3-44.2); Mean Corpuscular HGB Conc 32.8 g/dl (32-36); Mean Corpuscular Hemoglobin 32.2 pg (26-34); Mean Corpuscular Volume 98.2 fl (80-100); Mean Platelet Volume 10.5 fl (7.4-10.4); Monocytes Absolute Auto 1.4 K/mm3 (0.1-0.6); Monocytes Percent Auto 10.2 % (2.6-8.5); Neutrophils Absolute Auto 11.8 K/mm3 (1.3-6.7); Neutrophils Percent Auto 83.5 % (45.5-73.1); Platelet Count Result 173 k/mm3 (150-375); Red Blood Count 5.03 M/mm3 (4.2-5.4); Red Cell Distribution Width 15.8 % (11.5-14.5); White Blood Count 14.2 K/mm3 (4.5-10.0)
[2021-09-01] MEDS: ONDANSETRON INJ 4 MG/2 ML VIAL IV PUSH (13:29)
[2021-09-01] MEDS: SODIUM CHLORIDE 0.9% IV 1,000 ML 999 ML IV CONT (13:29)
[2021-09-01 13:34] LABS: Alanine Aminotransferase 23 U/L (6-35); Albumin Level 3.9 g/dL (3.5-5.1); Alkaline Phosphatase 110 U/L (38-126); Anion Gap 6 mmol/L (8-16); Aspartate Amino Transferase 24 U/L (14-36); Bilirubin,Total 0.6 mg/dL (0.2-1.3); Blood Urea Nitrogen 15 mg/dL (7-17); Calcium 9.2 mg/dL (8.4-10.2); Carbon Dioxide 31 mmol/L (22-30); Chloride 100 mmol/L (98-107); Estimated CRCL calculation 100 ml/min; Estimated Glomerular Filt Rate > 60; Glucose 123 mg/dL (65-110); Lipase 126 U/L (23-300); Potassium 4.1 mmol/L (3.4-5.0); Sodium 137 mmol/L (137-145)
[2021-09-01 13:59] LABS: Appearance Urine Cloudy (Clear); Bilirubin Urine Negative (Negative); Blood Urine 3+ (Negative); Color Urine Yellow (Yellow); Glucose Urine UA Negative (Negative); Ketones Urine 1+ mg/dL (Negative); Leukocyte Esterase Ur 3+ LEU/UL (Negative); Nitrate Urine Positive (Negative); Protein Urine 1+ mg/dL (Negative); Specific Grav Ur 1.025 (1.001-1.035)
[2021-09-01 14:13] LABS: Bacteria Urine 2+ /hpf; Mucus Urine Moderate /lpf; RBC Urine >75 /hpf (0-2); Squamous Epithelial Cell Urine Occasional /hpf (Few); WBC Urine >75 /hpf
[2021-09-01 14:15] LABS: Add Urine Microscopic? YES
[2021-09-01 14:44] VITALS: PULSE 84; RESP 18; O2SAT 100
[2021-09-01 14:47] VITALS: BP 114/70; PULSE 84; RESP 18; O2SAT 96
[2021-09-01] MEDS: metroNIDAZOLE 500 MG/ISO 100ML 500 MG/100 ML BAG 100 MG IVPB ×2 (15:15→20:22)
[2021-09-01 15:40] LABS: SARS-CoV-2 RNA PCR Negative
--- NOTE | 2021-09-01 16:23 | PM.CNGS ---
Assessment and Plan Assessment and plan (1) Acute cholecystitis: Code(s): K81.0 - Acute cholecystitis Status: Acute Assessment and Plan: I have reviewed the CT and discussed the findings with the patient. She has evidence of acute cholecystitis. She will be admitted to the hospital for further treatment. Due to her long-term anticoagulation, surgery will not be able to be performed until coagulopathy is reversed. Since this does not appear to be emergent at this time, can plan to hold warfarin and give vitamin K to reverse coagulopathy. Could consider FFP transfusion if coagulopathy needs to be reversed quickly. Will follow-up on patient tomorrow to assess symptoms and follow-up labs. I would recommend proceeding with laparoscopic cholecystectomy once she is medically stable and INR is down below 1.4. Surgery will be slightly higher risk to the patient due to her comorbidities. Discussed that she does have an increased risk of bleeding and increased risk perioperative DVT or PE. Could consider bridging anticoagulation with Lovenox while waiting for INR to come down and postoperatively while waiting for INR to be back therapeutic. (2) UTI (urinary tract infection): Code(s): N39.0 - Urinary tract infection, site not specified Status: Acute (3) Multiple sclerosis: Code(s): G35 - Multiple sclerosis Status: Acute (4) History of DVT (deep vein thrombosis): Code(s): Z86.718 - Personal history of other venous thrombosis and embolism Status: Acute (5) Current use of lobsterman anticoagulation: Code(s): Z79.01 - penitentiary (current) use of anticoagulants Status: Acute History of Present Illness Consult details Consult date: 09/01/21 Reason for consult: gallstones Requesting physician: Brady Giron DO Narrative: This is a 60-year-old woman who presented to the emergency department today with right upper quadrant abdominal pain that started last night. She states that she ate pizza for dinner and her pain started shortly after that. She had never experienced pain like this in the past. She did have some nausea but no vomiting. She denies any diarrhea and states that she is usually constipated. She denies any fevers or chills. The patient also has a history of MS and history of DVT. She is essentially bed ridden due to the MS and uses a scooter to get around. She has had multiple DVTs in the past and is on warfarin jail. In the emergency department she was noted to have an elevated white blood count at 14.[address] showed evidence of cholelithiasis with cholecystitis. Review of Systems Review of Systems: All systems reviewed & are unremarkable except as noted in HPI and below Constitutional: Constitutional: Denies chills and Denies fever(s) Eyes: Eyes: Denies change in vision ENT: Denies hearing loss, Denies neck pain and Denies sore throat Cardiovascular: Cardiovascular: Denies chest pain and Denies dyspnea Respiratory: Respiratory: Denies cough, Denies dyspnea and Denies wheezing Gastrointestinal: Gastrointestinal: Reports as per HPI Genitourinary: Genitourinary: Denies hematuria and Denies dysuria Musculoskeletal: Musculoskeletal: Denies arthralgias, Denies joint swelling and Denies neck pain Integumentary/Breasts: Skin/Breast: Reports other ( Patient does have a bedsore that she has been watching and treating) Allergic/Immunologic: Allergic/Immunologic: Denies wheezing [facility] Past Medical History Medical History (Updated 09/01/21 @ 16:31 by Orlin Ko DO) Current use of jail anticoagulation History of DVT (deep vein thrombosis) Hyperlipidemia Morbid obesity Multiple sclerosis Neurogenic bladder Wheelchair bound Surgical History Surgical History (Updated 09/01/21 @ 16:28 by Orlin Ko DO) History of hysterectomy History of tonsillectomy and adenoidectomy Hx of cystoscopy Family History Family History
[2021-09-01 16:31] VITALS: BP 104/63; PULSE 76; RESP 18; O2SAT 94
--- NOTE | 2021-09-01 17:00 | PM.IMHP ---
H&P: HPI History of Present Illness Date/Time: 09/01/21 17:00 Chief Complaint: Abdominal pain. 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 She had pizza for dinner yesterday and sometime during the night she developed a significant aching discomfort in the right upper quadrant which at times is sharp and shooting in nature. The pain does not radiate and she has not noticed any significant aggravating or alleviating factors. She had some nausea and sweats with the pain but no vomiting. She denies having similar symptoms in the past. CT of the abdomen and pelvis today showed cholelithiasis and mild pericholecystic inflammatory changes which may represent early or mild cholecystitis and she is being admitted in this setting. Currently she is feeling a bit better after receiving IV pain medication, rating her pain 3/10. Review of Systems Review of Systems: Twelve systems were reviewed. She denies fever. No recent cold or flu symptoms. No cough or shortness of breath. No chest pain. She has ongoing issues with constipation. She has a neurogenic bladder and does straight catheterization. She has been wheelchair-bound for several years and uses a motorized scooter. She transfers with a slide board. Except as documented, all other systems were reviewed and are negative. 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 Hyperlipidemia Kidney stones Multiple sclerosis Neurogenic bladder Wheelchair bound Surgical History Surgical History (Updated 09/01/21 @ 20:49 by Maira Liao PA-C) History of cystoscopy History of hysterectomy History of lithotripsy History of removal of cyst Left foot. History of tonsillectomy and adenoidectomy History of vascular surgery Right leg venous cut down. Family History Family History Father Gallbladder disease Social History Social History (Updated 09/01/21 @ 20:50 by Maira Liao PA-C) Social History: Surrogate medical decision maker: Dirk Camacho, son. Code status: Full code. Smoking status: Former smoker Additional smoking assessment comments: Smoked socially greater than 35 years ago. Alcohol intake: never Substance use: never Additional living arrangements comments: The patient lives in her own home. She has 2 grown children. Additional occupation/education comments: Disabled. Spiritual care concerns: No Meds Home Medications and Allergies Home Medications Medication Instructions Recorded Confirmed Type Cognium 1 cap PO BID 10/10/19 03/21/21 History Ocrevus 1 dose IV .[id number] 10/10/19 09/01/21 History baclofen 10 mg tablet 30 mg PO BID 10/10/19 09/01/21 History calcium carbonate 600 mg-vitamin 2 tablet PO DAILY 10/10/19 09/01/21 History D3 5 mcg (200 unit) tablet (Calcium 600 + D(3)) cholecalciferol (vitamin D3) 125 125 mcg PO DAILY 10/10/19 09/01/21 History mcg (5,000 unit) tablet (Vitamin D3) escitalopram oxalate 10 mg tablet 10 mg PO DAILY 10/10/19 09/01/21 History ezetimibe 10 mg tablet 10 mg PO DAILY 10/10/19 09/01/21 History flaxseed oil 1,000 mg capsule 1,000 mg PO BID 10/10/19 09/01/21 History mirabegron 50 mg tablet,extended 50 mg PO DAILY 10/10/19 09/01/21 History release 24 hr (Myrbetriq) vitamin B comp and C no.3 15 mg-10 1 cap PO DAILY 10/10/19 09/01/21 History mg-50 mg-5 mg-300 mg capsule warfarin 10 mg tablet 11 mg PO DAILY 10/10/19 09/01/21 History clonazepam 0.5 mg tablet 0.5 mg PO BID 10/11/19 09/01/21 History docusate sodium 100 mg capsule 200 mg PO DAILY 10/11/19 09/01/21 History (Colace) glycerin (adult) 1 supp RECTAL .Q3D 10/11/19 09/01/21 Histo
[2021-09-01 17:13] LABS: INR 2.4; Partial Thromboplastin Time 31.3 SECONDS (22.3-36.8); Prothrombin Time 25.4 Seconds (11.1-14.7)
--- NOTE | 2021-09-01 17:41 | ADMGEN ---
This patient, Rowan Morris, was admitted to [facility] Surg Room 307-01 at 1735. Patient/family oriented to hospital policies and general routines including ID bracelet, bed and alarms, visiting hours, pain management, procedures, bathroom and other care routines, personal items, smoking policy, room service/diet, and visiting hours. Information on how to activate the Rapid Response Team has been discussed. Patient/Family are encouraged to report perceived risks to care and to ask questions if they do not understand what they are told or what they should do.
[2021-09-01] MEDS: SODIUM CHLORIDE 0.9% IV 1,000 ML 125 ML IV CONT (17:46)
[2021-09-01 17:56] VITALS: BMI 37.8
[2021-09-01 17:59] VITALS: BP 105/51; PULSE 74; RESP 16; TEMP 36.2; O2SAT 98; BMI 37.8
[2021-09-01 22:00] VITALS: BP 103/54; PULSE 73; RESP 18; TEMP 35.9; O2SAT 99
[2021-09-02] MEDS: ACETAMINOPHEN 325 MG TABLET 650 MG PO (00:12)
[2021-09-02] MEDS: SODIUM CHLORIDE 0.9% IV 1,000 ML 100 ML IV CONT ×2 (02:30→15:45)
[2021-09-02] MEDS: metroNIDAZOLE 500 MG/ISO 100ML 500 MG/100 ML BAG 100 MG IVPB ×4 (02:46→20:25)
[2021-09-02 06:00] VITALS: BP 99/48; PULSE 89; RESP 18; TEMP 36.1; O2SAT 97
[2021-09-02 06:21] LABS: Basophils Percent Auto 0.4 % (0.2-1.2); Eosinophils Absolute Auto 0.2 K/mm3 (0-0.3); Eosinophils Percent Auto 1.4 % (0-4.4); Hematocrit 43.2 % (37.0-47.0); Hemoglobin 14.4 g/dL (12.0-15.0); Immature Granulocyte Absolute 0.04 K/mm3 (0.00-0.031); Immature Granulocyte Percent A 0.4 % (0-0.5); Immature Platelet Fraction Pct 7.4 % (0.9-11.2); Lymphocytes Absolute Auto 0.88 K/mm3 (0.9-3.2); Lymphocytes Percent Auto 8.4 % (18.3-44.2); Mean Corpuscular HGB Conc 33.3 g/dl (32-36); Mean Corpuscular Hemoglobin 32.1 pg (26-34); Mean Corpuscular Volume 96.4 fl (80-100); Mean Platelet Volume 10.8 fl (7.4-10.4); Monocytes Absolute Auto 1.5 K/mm3 (0.1-0.6); Monocytes Percent Auto 14.3 % (2.6-8.5); Neutrophils Absolute Auto 7.9 K/mm3 (1.3-6.7); Neutrophils Percent Auto 75.1 % (45.5-73.1); Platelet Count Result 140 k/mm3 (150-375); Red Blood Count 4.48 M/mm3 (4.2-5.4); Red Cell Distribution Width 15.8 % (11.5-14.5); White Blood Count 10.5 K/mm3 (4.5-10.0)
[2021-09-02 06:36] LABS: Alanine Aminotransferase 18 U/L (6-35); Albumin Level 3.1 g/dL (3.5-5.1); Alkaline Phosphatase 81 U/L (38-126); Anion Gap 4 mmol/L (8-16); Aspartate Amino Transferase 22 U/L (14-36); Bilirubin,Total 0.6 mg/dL (0.2-1.3); Blood Urea Nitrogen 8 mg/dL (7-17); Carbon Dioxide 28 mmol/L (22-30); Chloride 106 mmol/L (98-107); Estimated CRCL calculation 117 ml/min; Estimated Glomerular Filt Rate > 60; Glucose 88 mg/dL (65-110); Potassium 3.6 mmol/L (3.4-5.0); Sodium 138 mmol/L (137-145)
[2021-09-02] MEDS: PHYTONADIONE ADULT INJ 10 MG in DEXTROSE 5% IN WATER 50 ML 100 MG IVPB ×2 (08:31→21:40)
[2021-09-02 08:33] VITALS: O2SAT 95
--- NOTE | 2021-09-02 08:40 | PM.IMPN ---
Progress Note: A&P Assessment and Plan (1) Acute cholecystitis: Code(s): K81.0 - Acute cholecystitis Status: Acute Assessment and Plan: History and imaging are consistent with acute cholecystitis and she has been started on levofloxacin. Dr. Ko recommends cholecystectomy though she is anticoagulated and thus she will be given vitamin K and her warfarin will be held to allow her INR to drift down. Analgesics available as needed. 09/02: Leukocytosis improved to 10, was 14 yesterday, recheck INR pending. Goal INR less than 1.4 for surgery. Hans repeat INR today at 5pm, if still elevated, will give another dose vitamin K 10 mg IV x 1 at 10pm, 12 hours after the first dose. (2) Abnormal urinalysis: Code(s): R82.90 - Unspecified abnormal findings in urine Status: Acute Assessment and Plan: Patient has no signs or symptoms of urinary tract infection though she has a neurogenic bladder and does straight cath at home. 09/02: Continue Levaquin, follow-up urine culture (3) Current use of buttermaker anticoagulation: Code(s): Z79.01 - assisted (current) use of anticoagulants Status: Acute Assessment and Plan: She is on warfarin for history of recurrent DVTs over the years. Warfarin currently on hold to allow INR to drift down before surgery. May need heparin bridge depending on length of stay. 09/02: Recheck INR pending, will bridge with Lovenox when appropriate Subjective Date/time seen: 09/02/21 08:40 Review of Systems Review of Systems: ? 12 point review of systems was assessed and was negative except as noted in the HPI Exam Narrative: General:??No acute distress, alert and oriented per baseline HEENT:? Atraumatic, normocephalic, mucous membranes moist CV:? Regular rate and rhythm, S1, S2 Lungs:? Clear to auscultation bilaterally, no rales or crackles noted, no wheezes, good air entry Abdomen:? Soft, TTP epigastric and RUQ, no rebounding/guarding Extremities:? Normal to inspection Skin:? No rashes noted, no lesions or wounds seen Psych:? Euthymic, normal affect Objective Data Vital Signs Vital Signs: Vital Signs - 24 hr 09/01/21 11:54 09/01/21 14:44 09/01/21 14:47 Temperature 97.6 F Pulse Rate 84 84 Respiratory Rate 16 18 18 Blood Pressure 121/65 114/70 Pulse Oximetry 100 100 96 Oxygen Delivery 09/01/21 16:31 09/01/21 18:04 09/01/21 17:59 Temperature 97.2 F L Pulse Rate 76 74 Respiratory Rate 18 16 Blood Pressure 104/63 105/51 L Pulse Oximetry 94 98 Oxygen Delivery Room Air 09/01/21 20:00 09/01/21 22:00 09/02/21 06:00 Temperature 96.6 F L 96.9 F L Pulse Rate 73 89 Respiratory Rate 18 18 Blood Pressure 103/54 L 99/48 L Pulse Oximetry 99 97 Oxygen Delivery Room Air 09/02/21 08:33 Temperature Pulse Rate Respiratory Rate Blood Pressure Pulse Oximetry 95 Oxygen Delivery Room Air Intake/Output Intake/Output: Intake & Output 08/30/21 08/31/21 09/01/21 09/02/21 23:59 23:59 23:59 23:59 Intake Total 1450 1000 Output Total 550 Balance 1450 450 Meds/Results Medications: Active Medications Generic Name Dose Route Start Last Admin Trade Name Freq PRN Reason Stop Dose Admin Acetaminophen 650 mg 09/01/21 22:09 09/02/21 00:12 Acetaminophen 325 Mg Tablet PO 650 mg Q6H PRN Administration Mild Pain (1-3) or Fever Hydrocodone Bitart/Acetaminophen 1 tab 09/01/21 22:08 Hydrocodone/Acetaminophen (*Crx) 5-325 Mg Tablet PO Q6H PRN Pain Rated 4-6 Baclofen 30 mg 09/02/21 09:00 Baclofen 10 Mg Tablet PO BID [facility] Calcium Carbonate 1,000 mg 09/02/21 09:00 Calcium/Vitamin D 500 Mg Tablet PO 10/02/21 08:59 DAILY MARBELLA Clonazepam 0.5 mg 09/02/21 09:00 Clonazepam (*Crx) 0.5 Mg Tablet PO BID MARBELLA Docusate Sodium 200 mg 09/02/21 09:00 Docusate Sodium 100 Mg Capsule PO DAILY MARBELLA Ezetimibe 10 mg 09/02/21 09:00 Ezetimibe
--- NOTE | 2021-09-02 08:55 | PM.PNGS ---
Progress Note: A&P Assessment and Plan (1) Acute cholecystitis: Code(s): K81.0 - Acute cholecystitis Status: Acute Assessment and Plan: Will try clear liquids today Vit K IV ordered for today, continue to follow INR. Will proceed with Lap sohail once INR normalized. 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 No fevers. Exam GI: Inspection: non-distended and obesity GI Palp: Yes Soft to palpation, Yes Tenderness to palpation present (GI) (RUQ) and No Guarding due to palpation present (GI) Objective Data Vital Signs Vital Signs: Vital Signs - 24 hr 09/01/21 11:54 09/01/21 14:44 09/01/21 14:47 Temperature 36.4 C Pulse Rate 84 84 Respiratory Rate 16 18 18 Blood Pressure 121/65 114/70 Pulse Oximetry 100 100 96 Oxygen Delivery 09/01/21 16:31 09/01/21 18:04 09/01/21 17:59 Temperature 36.2 C L Pulse Rate 76 74 Respiratory Rate 18 16 Blood Pressure 104/63 105/51 L Pulse Oximetry 94 98 Oxygen Delivery Room Air 09/01/21 20:00 09/01/21 22:00 09/02/21 06:00 Temperature 35.9 C L 36.1 C L Pulse Rate 73 89 Respiratory Rate 18 18 Blood Pressure 103/54 L 99/48 L Pulse Oximetry 99 97 Oxygen Delivery Room Air 09/02/21 08:33 Temperature Pulse Rate Respiratory Rate Blood Pressure Pulse Oximetry 95 Oxygen Delivery Room Air Intake/Output Intake/Output: Intake & Output 08/30/21 08/31/21 09/01/21 09/02/21 23:59 23:59 23:59 23:59 Intake Total 1450 1000 Output Total 550 Balance 1450 450 Meds/Results Medications: Active Medications Generic Name Dose Route Start Last Admin Trade Name Freq PRN Reason Stop Dose Admin Acetaminophen 650 mg 09/01/21 22:09 09/02/21 00:12 Acetaminophen 325 Mg Tablet PO 650 mg Q6H PRN Administration Mild Pain (1-3) or Fever Hydrocodone Bitart/Acetaminophen 1 tab 09/01/21 22:08 Hydrocodone/Acetaminophen (*Crx) 5-325 Mg Tablet PO Q6H PRN Pain Rated 4-6 Baclofen 30 mg 09/02/21 09:00 Baclofen 10 Mg Tablet PO BID [facility] Calcium Carbonate 1,000 mg 09/02/21 09:00 Calcium/Vitamin D 500 Mg Tablet PO 10/02/21 08:59 DAILY [facility] Clonazepam 0.5 mg 09/02/21 09:00 Clonazepam (*Crx) 0.5 Mg Tablet PO BID [facility] Docusate Sodium 200 mg 09/02/21 09:00 Docusate Sodium 100 Mg Capsule PO DAILY [facility] Ezetimibe 10 mg 09/02/21 09:00 Ezetimibe 10 Mg Tablet PO DAILY [facility] Escitalopram Oxalate 10 mg 09/02/21 09:00 Escitalopram Oxalate 10 Mg Tablet PO DAILY [facility] Glycerin 1 supp 09/02/21 09:00 Glycerin Adult 1 Supp.Rect RECTAL Q72H [facility] Metronidazole 500 mg in 100 mls @ 100 mls/hr 09/01/21 21:00 09/02/21 05:11 Flagyl 500 Mg/Iso Soln 100 Ml IVPB 0 mls/hr Q6H [facility] Infusion Levofloxacin/Dextrose 750 mg in 150 mls @ 100 mls/hr 09/02/21 16:00 Levaquin 750 Mg/D5w 150 Ml IVPB Q24H [facility] Sodium Chloride 1,000 mls @ 100 mls/hr 09/01/21 15:30 09/02/21 02:30 Normal Saline Iv IV CONT 100 mls/hr .Q10H MARBELLA Administration Mirabegron 50 mg 09/02/21 09:00 Mirabegron 50 Mg Er Tablet PO DAILY [facility] Miscellaneous Information 1 each 09/01/21 00:01 Ketoconazole Cream Needs Clarified Where To Apply And What Days. Usually Used Daily Not 3 XX 10/01/21 00:00 CLARIFY MARBELLA Miscellaneous Information 1 each 09/01/21 00:01 Ketoconazole Shampoo Needs Days Of Week Due. W
[2021-09-02 09:18] LABS: INR 2.7; Prothrombin Time 27.8 Seconds (11.1-14.7)
[2021-09-02 11:20] VITALS: BP 106/71
[2021-09-02] MEDS: EZETIMIBE 10 MG TABLET PO (11:23)
[2021-09-02] MEDS: CHOLECALCIFEROL 1,000 UNITS TABLET 5000 UNITS PO (11:23)
[2021-09-02] MEDS: BACLOFEN 10 MG TABLET 30 MG PO ×2 (11:24→18:02)
[2021-09-02] MEDS: ESCITALOPRAM OXALATE 10 MG TABLET PO (11:24)
[2021-09-02] MEDS: PRIMIDONE 250 MG TABLET PO ×2 (11:24→18:01)
[2021-09-02] MEDS: DOCUSATE SODIUM 100 MG CAPSULE 200 MG PO (11:24)
[2021-09-02 11:25] VITALS: PULSE 95
[2021-09-02] MEDS: MIRABEGRON 50 MG ER TABLET PO (11:25)
[2021-09-02] MEDS: PROPRANOLOL HCL 60 MG CAPSULE CR PO (11:25)
[2021-09-02] MEDS: clonazePAM (*CRX) 0.5 MG TABLET PO ×2 (11:27→18:02)
[2021-09-02] MEDS: VITAMIN B COMPLEX/VIT C CAPSULE 1 EACH PO (11:30)
[2021-09-02 14:00] VITALS: BP 112/52; PULSE 95; RESP 18; TEMP 36.5; O2SAT 99
[2021-09-02] MEDS: PHYTONADIONE 5 MG TABLET 10 MG PO (15:44)
[2021-09-02 18:02] LABS: INR 1.6; Prothrombin Time 18.4 Seconds (11.1-14.7)
[2021-09-02 22:00] VITALS: BP 104/52; PULSE 96; RESP 18; TEMP 36.4; O2SAT 94
[2021-09-03] MEDS: metroNIDAZOLE 500 MG/ISO 100ML 500 MG/100 ML BAG 100 MG IVPB ×4 (02:37→21:31)
[2021-09-03] MEDS: SODIUM CHLORIDE 0.9% IV 1,000 ML 100 ML IV CONT (05:51)
[2021-09-03 06:00] VITALS: BP 105/45; PULSE 86; RESP 18; TEMP 36.4; O2SAT 95
[2021-09-03 06:00] LABS: Basophils Percent Auto 0.3 % (0.2-1.2); Eosinophils Absolute Auto 0.2 K/mm3 (0-0.3); Eosinophils Percent Auto 1.3 % (0-4.4); Hematocrit 41.7 % (37.0-47.0); Hemoglobin 13.8 g/dL (12.0-15.0); Immature Granulocyte Absolute 0.06 K/mm3 (0.00-0.031); Immature Granulocyte Percent A 0.5 % (0-0.5); Immature Platelet Fraction Pct 7.6 % (0.9-11.2); Lymphocytes Absolute Auto 0.86 K/mm3 (0.9-3.2); Lymphocytes Percent Auto 7.4 % (18.3-44.2); Mean Corpuscular HGB Conc 33.1 g/dl (32-36); Mean Corpuscular Hemoglobin 32.1 pg (26-34); Mean Platelet Volume 10.9 fl (7.4-10.4); Monocytes Absolute Auto 1.6 K/mm3 (0.1-0.6); Monocytes Percent Auto 13.5 % (2.6-8.5); Platelet Count Result 141 k/mm3 (150-375); Red Cell Distribution Width 15.7 % (11.5-14.5); White Blood Count 11.7 K/mm3 (4.5-10.0)
[2021-09-03 06:10] LABS: INR 1.4; Prothrombin Time 17.1 Seconds (11.1-14.7)
[2021-09-03 06:18] LABS: Alanine Aminotransferase 16 U/L (6-35); Alkaline Phosphatase 78 U/L (38-126); Anion Gap 5 mmol/L (8-16); Aspartate Amino Transferase 18 U/L (14-36); Bilirubin,Total 0.8 mg/dL (0.2-1.3); Blood Urea Nitrogen 6 mg/dL (7-17); Calcium 7.9 mg/dL (8.4-10.2); Carbon Dioxide 25 mmol/L (22-30); Chloride 107 mmol/L (98-107); Estimated CRCL calculation 142 ml/min; Estimated Glomerular Filt Rate > 60; Glucose 83 mg/dL (65-110); Potassium 3.2 mmol/L (3.4-5.0); Sodium 137 mmol/L (137-145)
--- NOTE | 2021-09-03 07:36 | PM.PNGS ---
Progress Note: A&P Assessment and Plan (1) Acute cholecystitis: Code(s): K81.0 - Acute cholecystitis Status: Acute Assessment and Plan: INR still 1.4. Will plan for lap sohail tomorrow as long as INR comes down a little further. OK for clear liquids today. 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 Tolerating clear liquids. Exam GI: GI Palp: Yes Soft to palpation, Yes Tenderness to palpation present (GI) (RUQ) and No Guarding due to palpation present (GI) Objective Data Vital Signs Vital Signs: Vital Signs - 24 hr 09/02/21 08:33 09/02/21 09:10 09/02/21 11:25 Temperature Pulse Rate 95 Respiratory Rate Blood Pressure Pulse Oximetry 95 Oxygen Delivery Room Air Room Air 09/02/21 11:20 09/02/21 14:00 09/02/21 20:00 Temperature 36.5 C Pulse Rate 95 Respiratory Rate 18 Blood Pressure 106/71 112/52 L Pulse Oximetry 99 Oxygen Delivery Room Air 09/02/21 22:00 09/03/21 06:00 Temperature 36.4 C 36.4 C L Pulse Rate 96 86 Respiratory Rate 18 18 Blood Pressure 104/52 L 105/45 L Pulse Oximetry 94 95 Oxygen Delivery Intake/Output Intake/Output: Intake & Output 08/31/21 09/01/21 09/02/21 09/03/21 23:59 23:59 23:59 23:59 Intake Total 1450 3361 1300 Output Total 1200 850 Balance 1450 2161 450 Meds/Results Medications: Active Medications Generic Name Dose Route Start Last Admin Trade Name Freq PRN Reason Stop Dose Admin Acetaminophen 650 mg 09/01/21 22:09 09/02/21 00:12 Acetaminophen 325 Mg Tablet PO 650 mg Q6H PRN Administration Mild Pain (1-3) or Fever Hydrocodone Bitart/Acetaminophen 1 tab 09/01/21 22:08 Hydrocodone/Acetaminophen (*Crx) 5-325 Mg Tablet PO Q6H PRN Pain Rated 4-6 Baclofen 30 mg 09/02/21 09:00 09/02/21 18:02 Baclofen 10 Mg Tablet PO 30 mg BID MARBELLA Administration Calcium Carbonate 1,000 mg 09/02/21 09:00 09/02/21 11:24 Calcium/Vitamin D 500 Mg Tablet PO 10/02/21 08:59 1,000 mg DAILY [facility] Administration Clonazepam 0.5 mg 09/02/21 09:00 09/02/21 18:02 Clonazepam (*Crx) 0.5 Mg Tablet PO 0.5 mg BID MAR[facility]A Administration Docusate Sodium 200 mg 09/02/21 09:00 09/02/21 11:24 Docusate Sodium 100 Mg Capsule PO 200 mg DAILY [facility] Administration Ezetimibe 10 mg 09/02/21 09:00 09/02/21 11:23 Ezetimibe 10 Mg Tablet PO 10 mg DAILY [facility] Administration Escitalopram Oxalate 10 mg 09/02/21 09:00 09/02/21 11:24 Escitalopram Oxalate 10 Mg Tablet PO 10 mg DAILY [facility] Administration Glycerin 1 supp 09/02/21 09:00 09/02/21 08:20 Glycerin Adult 1 Supp.Rect RECTAL Not Given Q72H [facility] Metronidazole 500 mg in 100 mls @ 100 mls/hr 09/01/21 21:00 09/03/21 03:40 Flagyl 500 Mg/Iso Soln 100 Ml IVPB Infused Q6H [facility] Infusion Levofloxacin/Dextrose 750 mg in 150 mls @ 100 mls/hr 09/02/21 16:00 09/02/21 17:14 Levaquin 750 Mg/D5w 150 Ml IVPB Infused Q24H [facility] Infusion Sodium Chloride 1,000 mls @ 100 mls/hr 09/01/21 15:30 09/03/21 05:51 Normal Saline Iv IV CONT 100 mls/hr .Q10H [facility] Administration Mirabegron 50 mg 09/02/21 09:00 09/02/21 11:25 Mirabegron 50 Mg Er Tablet PO 50 mg DAILY [facility] Administration Miscellaneous Information 1 each 09/01/21 00:01 Ketoconazole Cream Needs Clarified Where To Apply And What Days. Usually Used Daily Not 3 XX 10/01/21 00:00 JOHNNIE Burton
[2021-09-03] MEDS: MIRABEGRON 50 MG ER TABLET PO (09:29)
[2021-09-03] MEDS: DOCUSATE SODIUM 100 MG CAPSULE 200 MG PO (09:29)
[2021-09-03] MEDS: VITAMIN B COMPLEX/VIT C CAPSULE 1 EACH PO (09:29)
[2021-09-03] MEDS: PRIMIDONE 250 MG TABLET PO ×2 (09:29→17:33)
[2021-09-03] MEDS: ESCITALOPRAM OXALATE 10 MG TABLET PO (09:29)
[2021-09-03] MEDS: EZETIMIBE 10 MG TABLET PO (09:29)
[2021-09-03] MEDS: CHOLECALCIFEROL 1,000 UNITS TABLET 5000 UNITS PO (09:29)
[2021-09-03 09:34] VITALS: PULSE 76
[2021-09-03] MEDS: PROPRANOLOL HCL 60 MG CAPSULE CR PO (09:34)
[2021-09-03] MEDS: BACLOFEN 10 MG TABLET 30 MG PO ×2 (09:35→17:34)
[2021-09-03] MEDS: clonazePAM (*CRX) 0.5 MG TABLET PO ×2 (09:35→17:40)
[2021-09-03 10:26] VITALS: BMI 39.8
[2021-09-03 12:20] VITALS: BP 119/56; PULSE 81; RESP 16; TEMP 35.9; O2SAT 95
--- NOTE | 2021-09-03 13:37 | WPDANESEPPF ---
Anes - Initial Pre Proc Eval Procedure: Operation Date: 09/04/21 10:30 Proposed Procedures p Laparoscopic Cholecystectomy,Possible Open - Orlin Ko DO Date/Time: 09/03/21 13:37 Surgeon: Alfonso Reich MD Pre Op Diagnosis: Cholecystitis/UTI Patient Data Age: 60 Gender: F Height: 1.65 m Weight: 108.5 kg Last Vital Signs Temp 36.4 C L 09/03/21 06:00 Pulse 76 09/03/21 09:34 Resp 18 09/03/21 06:00 BP 105/45 L 09/03/21 06:00 Pulse Ox 95 09/03/21 06:00 O2 Del Method Room Air 09/03/21 09:30 Allergies Allergy/AdvReac Type Severity Reaction Status Date / Time Sulfa (Sulfonamide Allergy Mild WATSON, nausea Verified 09/01/21 12:26 Antibiotics) naproxen Allergy Unknown CANNOT Verified 09/01/21 12:26 TAKE R/T WARFARIN Penicillins Allergy Unknown Rash Verified 09/01/21 12:26 Home Medications Medication Instructions Recorded Confirmed Type Ocrevus 1 dose IV .[id number] 10/10/19 09/01/21 History baclofen 10 mg tablet 30 mg PO BID 10/10/19 09/01/21 History calcium carbonate 600 mg-vitamin 2 tablet PO DAILY 10/10/19 09/01/21 History D3 5 mcg (200 unit) tablet (Calcium 600 + D(3)) cholecalciferol (vitamin D3) 125 125 mcg PO DAILY 10/10/19 09/01/21 History mcg (5,000 unit) tablet (Vitamin D3) escitalopram oxalate 10 mg tablet 10 mg PO DAILY 10/10/19 09/01/21 History ezetimibe 10 mg tablet 10 mg PO DAILY 10/10/19 09/01/21 History flaxseed oil 1,000 mg capsule 1,000 mg PO BID 10/10/19 09/01/21 History mirabegron 50 mg tablet,extended 50 mg PO DAILY 10/10/19 09/01/21 History release 24 hr (Myrbetriq) vitamin B comp and C no.3 15 mg-10 1 cap PO DAILY 10/10/19 09/01/21 History mg-50 mg-5 mg-300 mg capsule warfarin 10 mg tablet 11 mg PO DAILY 10/10/19 09/01/21 History clonazepam 0.5 mg tablet 0.5 mg PO BID 10/11/19 09/01/21 History docusate sodium 100 mg capsule 200 mg PO DAILY 10/11/19 09/01/21 History (Colace) glycerin (adult) 1 supp RECTAL .Q3D 10/11/19 09/01/21 History ketoconazole 2 % shampoo 1 applic topical 3XW 10/11/19 09/01/21 History ketoconazole 2 % topical cream 1 applic topical 3XW 10/11/19 09/01/21 History primidone 250 mg tablet 250 mg PO BID 10/11/19 09/01/21 History propranolol 60 mg capsule,24 60 mg PO DAILY 08/09/20 09/01/21 History hr,extended release Laboratory Tests 09/02/21 09/03/21 09/03/21 17:39 05:35 05:35 WBC 11.7 K/mm3 H K/mm3 (4.5-10.0) RBC 4.30 M/mm3 M/mm3 (4.2-5.4) Hgb 13.8 g/dL g/dL (12.0-15.0) Hct 41.7 % % (37.0-47.0) MCV 97.0 fl fl (80-100) MCH 32.1 pg pg (26-34) MCHC 33.1 g/dl g/dl (32-36) RDW 15.7 % H % (11.5-14.5) Plt Count 141 k/mm3 L k/mm3 (150-375) MPV 10.9 fl H fl (7.4-10.4) Immature Gran % (Auto) 0.5 % % (0-0.5) Neut % (Auto) 77.0 % H % (45.5-73.1) Lymph % (Auto) 7.4 % L % (18.3-44.2) [place] % (Auto) 13.5 % H % (2.6-8.5) Eos % (Auto) 1.3 % % (0-4.4) Baso % (Auto) 0.3 % % (0.2-1.2) Lymph # (Auto) 0.86 K/mm3 L K/mm3 (0.9-3.2) [place] # (Auto) 1.6 K/mm3 H K/mm3 (0.1-0.6) Eos # (Auto) 0.2 K/mm3 K/mm3 (0-0.3) Baso # (Auto) 0.0 K/mm3 K/mm3 (0.0-0.1) Abs Immat Gran (auto) 0.06 K/mm3 H K/mm3 (0.00-0.031) Absolute Neuts (auto) 9.0 K/mm3 H K/mm3 (1.3-6.7) Absolute Nucleated RBC 0.0 K/mm3 K/mm3 (0.0-0.012) Nucleated RBC % 0.0 % % (0.0-0.2) % Immature Plt Fraction 7.6 % % (0.9-11.2) PT 18.4 Seconds H D Seconds 17.1 Seconds H Seconds (11.1-14.7) (11.1-14.7) INR 1.6 1.4 Sodium Potassium Chloride Carbon Dioxide Anion Gap BUN Creatinine Estim Creat Clear Calc Estimated GFR Glucose Calc
--- NOTE | 2021-09-03 15:00 | PM.IMPN ---
Progress Note: A&P Assessment and Plan (1) Acute cholecystitis: Code(s): K81.0 - Acute cholecystitis Status: Acute Assessment and Plan: History and imaging are consistent with acute cholecystitis and she has been started on levofloxacinAnd Flagyl. Dr. Ko recommends cholecystectomy though she is anticoagulated and thus she will be given vitamin K and her warfarin will be held to allow her INR to drift down. Analgesics available as needed. received vitamin K INR 1.4. Planned cholecystectomy in a.m. (2) Abnormal urinalysis: Code(s): R82.90 - Unspecified abnormal findings in urine Status: Acute Assessment and Plan: Patient has no signs or symptoms of urinary tract infection though she has a neurogenic bladder and does straight cath at home. continue Levaquin Urine culture with E coli. 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 Warfarin currently on hold to allow INR to drift down before surgery. May need heparin bridge depending on length of stay. Plan replace potassium Subjective Date/time seen: 09/03/21 15:00 Interval history: no overnight events. Abdominal pain persists. Some nausea no vomiting. Plan for surgery in the morning Review of Systems Review of Systems: All systems reviewed & are unremarkable except as noted in HPI and below Exam Narrative: General:??No acute distress, alert and oriented per baseline HEENT:? Atraumatic, normocephalic, mucous membranes moist CV:? Regular rate and rhythm, S1, S2 Lungs:? Clear to auscultation bilaterally, no rales or crackles noted, no wheezes, good air entry Abdomen:? Soft, TTP epigastric and RUQ, no rebounding/guarding Extremities:? Normal to inspection Skin:? No rashes noted, no lesions or wounds seen Psych:? Euthymic, normal affect Objective Data Vital Signs Vital Signs: Vital Signs - 24 hr 09/02/21 20:00 09/02/21 22:00 09/03/21 06:00 Temperature 97.6 F 97.5 F L Pulse Rate 96 86 Respiratory Rate 18 18 Blood Pressure 104/52 L 105/45 L Pulse Oximetry 94 95 Oxygen Delivery Room Air 09/03/21 09:34 09/03/21 09:30 Temperature Pulse Rate 76 Respiratory Rate Blood Pressure Pulse Oximetry Oxygen Delivery Room Air Intake/Output Intake/Output: Intake & Output 08/31/21 09/01/21 09/02/21 09/03/21 23:59 23:59 23:59 23:59 Intake Total 1450 3361 1622 Output Total 1200 850 Balance 1450 2161 772 Meds/Results Medications: Active Medications Generic Name Dose Route Start Last Admin Trade Name Freq PRN Reason Stop Dose Admin Acetaminophen 650 mg 09/01/21 22:09 09/02/21 00:12 Acetaminophen 325 Mg Tablet PO 650 mg Q6H PRN Administration Mild Pain (1-3) or Fever Hydrocodone Bitart/Acetaminophen 1 tab 09/01/21 22:08 Hydrocodone/Acetaminophen (*Crx) 5-325 Mg Tablet PO Q6H PRN Pain Rated 4-6 Baclofen 30 mg 09/02/21 09:00 09/03/21 09:35 Baclofen 10 Mg Tablet PO 30 mg BID [facility] Administration Calcium Carbonate 1,000 mg 09/02/21 09:00 09/03/21 09:29 Calcium/Vitamin D 500 Mg Tablet PO 10/02/21 08:59 1,000 mg DAILY [facility] Administration Clonazepam 0.5 mg 09/02/21 09:00 09/03/21 09:35 Clonazepam (*Crx) 0.5 Mg Tablet PO 0.5 mg BID [facility] Administration Docusate Sodium 200 mg 09/02/21 09:00 09/03/21 09:29 Docusate Sodium 100 Mg Capsule PO 200 mg DAILY [facility] Administration Ezetimibe 10 mg 09/02/21 09:00 09/03/21 09:29 Ezetimibe 10 Mg Tablet PO 10 mg DAILY [facility] Administration Escitalopram Oxalate 10 mg 09/02/21 09:00 09/03/21 09:29 Escitalopram Oxalate 10 Mg Tablet PO 10 mg DAILY [facility] Administration Fentanyl Citrate 25 mcg 09/03/21 12:20 Fentanyl Citrate Inj (*Crx) 100 Mcg/2 Ml Vial
[2021-09-03] MEDS: POTASSIUM CHLORIDE INJ 40 MEQ in SODIUM CHLORIDE 0.9% IV 500 ML 130 MEQ IVPB (17:33)
[2021-09-04] VITALS (13 sets, daily range): BP systolic 110–130; BP diastolic 54–72; PULSE 62–86; RESP 12–18; TEMP 36.2–37.1; O2SAT 96–100
[2021-09-04] MEDS: PHENYLEPH/SHARK OIL/MO/PETROL CREAM 26 GM 1 APPLIC RECTAL (00:34)
[2021-09-04] MEDS: metroNIDAZOLE 500 MG/ISO 100ML 500 MG/100 ML BAG 100 MG IVPB ×4 (03:03→20:21)
[2021-09-04 06:48] LABS: Basophils Percent Auto 0.4 % (0.2-1.2); Eosinophils Absolute Auto 0.3 K/mm3 (0-0.3); Eosinophils Percent Auto 3.8 % (0-4.4); Hematocrit 41.9 % (37.0-47.0); Hemoglobin 13.5 g/dL (12.0-15.0); Immature Granulocyte Absolute 0.04 K/mm3 (0.00-0.031); Immature Granulocyte Percent A 0.5 % (0-0.5); Immature Platelet Fraction Pct 8.2 % (0.9-11.2); Lymphocytes Absolute Auto 0.74 K/mm3 (0.9-3.2); Lymphocytes Percent Auto 9.4 % (18.3-44.2); Mean Corpuscular HGB Conc 32.2 g/dl (32-36); Mean Corpuscular Hemoglobin 31.9 pg (26-34); Mean Corpuscular Volume 99.1 fl (80-100); Mean Platelet Volume 11.3 fl (7.4-10.4); Monocytes Absolute Auto 0.8 K/mm3 (0.1-0.6); Monocytes Percent Auto 10.1 % (2.6-8.5); Neutrophils Percent Auto 75.8 % (45.5-73.1); Platelet Count Result 149 k/mm3 (150-375); Red Blood Count 4.23 M/mm3 (4.2-5.4); Red Cell Distribution Width 15.7 % (11.5-14.5); White Blood Count 7.9 K/mm3 (4.5-10.0)
[2021-09-04 06:58] LABS: Alanine Aminotransferase 12 U/L (6-35); Albumin Level 2.8 g/dL (3.5-5.1); Alkaline Phosphatase 70 U/L (38-126); Anion Gap 6 mmol/L (8-16); Aspartate Amino Transferase 20 U/L (14-36); Bilirubin,Total 0.5 mg/dL (0.2-1.3); Blood Urea Nitrogen 5 mg/dL (7-17); Calcium 8.2 mg/dL (8.4-10.2); Carbon Dioxide 23 mmol/L (22-30); Chloride 109 mmol/L (98-107); Estimated CRCL calculation 147 ml/min; Estimated Glomerular Filt Rate > 60; Glucose 81 mg/dL (65-110); Magnesium 1.8 mg/dL (1.6-2.3); Sodium 138 mmol/L (137-145)
[2021-09-04 07:28] LABS: INR 1.3; Prothrombin Time 15.4 Seconds (11.1-14.7)
[2021-09-04] MEDS: PROPRANOLOL HCL 60 MG CAPSULE CR PO (08:46)
[2021-09-04] MEDS: LACTATED RINGERS 1,000 ML 30 ML IV CONT ×2 (09:36→11:55)
--- NOTE | 2021-09-04 10:04 | WPDHPUPDATE1 ---
History and Physical Update Update Date/Time: 09/04/21 10:04 History and Physical has been reviewed, including an updated exam of the patient. There are NO changes in the patient's condition. Risks, benefits, and alternatives have been discussed and questions answered. Patient agrees to proceed with procedure.
--- NOTE | 2021-09-04 10:28 | PC.NURSE ---
Patient down to postop via bed at 0905. Family at bedside.
[2021-09-04] MEDS: BUPIVACAINE/EPINEPHRINE 0.25% 50 ML VIAL 30 ML INFILTRATE (10:48)
--- NOTE | 2021-09-04 11:55 | W.PM.PROC2 ---
Procedure Note - Detailed Date of Procedure 09/04/21 Pre-op Diagnosis Acute calculous cholecystitis Post-op Diagnosis Other (Acute gangrenous cholecystitis) Procedure Performed Laparoscopic Cholecystectomy Surgeon Orlin Ko DO Anesthesia General and Local (0.5% bupivacaine) Indications This is a 60 year old woman who presented through the emergency department with right upper quadrant abdominal pain for the past 2 days. She had never experienced anything like this in the past. CT in the emergency department showed evidence of acute calculous cholecystitis. She also had evidence of urinary tract infection. She was admitted and started on broad-spectrum IV antibiotics. She has a history of DVT and was anticoagulated with warfarin. She was given vitamin K to reverse her coagulopathy. Once her INR came down to a safe level, decision was made to proceed with laparoscopic cholecystectomy, possible open. Findings Laparoscopic cholecystectomy was performed. The gallbladder appeared tense and dilated and had several pericholecystic adhesions. As the adhesions were taken down, the gallbladder wall appeared gangrenous. The gallbladder was aspirated to decompress it to allow it to be grasped. There were several stones within the gallbladder. The cystic duct appeared normal in size and healthy and viable. There was some significant bleeding along the gallbladder fossa from the inflammation and patient being on anticoagulation. Electrocautery was used for hemostasis and then Surgiflo was also sprayed within the gallbladder fossa to help with hemostasis. Description of Procedure Procedure as well as risks, benefits, and alternatives were discussed with patient. Written consent was obtained and placed in chart prior to procedure. The patient was brought back to surgical suite. Patient was placed in supine position on operating table. Time-out was done to confirm patient and procedure. Patient was then intubated by the anesthesia department. Abdomen was prepped and draped in sterile fashion using chlorhexidine prep. 0.5% bupivacaine with epinephrine was infiltrated at each site of incision. A 5 millimeter incision was made near the umbilicus, and a 5 millimeter Optiview trocar was advanced through the abdominal layers under direct visualization. Once inside the abdominal cavity, carbon dioxide was insufflated to create a pneumoperitoneum. The camera was inserted and the abdomen was inspected. No immediate abnormalities were identified. The patient was placed in reverse Trendelenburg position and rotated slightly to the left. An 11 millimeter incision was made in the subxiphoid region, and an 11 millimeter trocar was inserted under direct visualization. Two 5 millimeter incisions were made in the right upper quadrant, and two 5 millimeter trocars were inserted under direct visualization. The gallbladder was identified and grasped at the fundus and retracted superiorly. It was then grasped at the infundibulum retracted laterally. Careful dissection around the neck of the gallbladder was performed using blunt dissection with a [place] grasper and hook electrocautery. The cystic duct was identified, and a window was created behind it. The cystic artery was also identified and a window was created behind it. The critical view of safety was identified, visualizing the cystic duct running directly into the neck of the gallbladder, and the cystic artery running directly into the wall of the gallbladder. A 5 millimeter clip raw sampler was then used to place 2 clips proximally and 1 clip distally on both the cystic duct and cystic artery. They were then both transected using endoscopic scissors. Once safely away from the bozena hepatitis, the gallbladder was dissected free from the liver bed using hook electrocautery. Hemostasis was achieved along the way. The gallbladder was removed completely and then removed through the subxiphoid port. The liver bed was then
[2021-09-04] MEDS: fentaNYL CITRATE INJ (*CRX) 100 MCG/2 ML VIAL 25 MCG IV PUSH ×4 (12:02→12:18)
[2021-09-04] MEDS: LACTATED RINGERS 1,000 ML 100 ML IV CONT (15:54)
[2021-09-04] MEDS: MORPHINE SULFATE (*CRX) 2 MG/ML INJ IV PUSH ×2 (15:55→23:10)
[2021-09-04] MEDS: CHOLECALCIFEROL 1,000 UNITS TABLET 5000 UNITS PO (16:04)
[2021-09-04] MEDS: DOCUSATE SODIUM 100 MG CAPSULE 200 MG PO (16:04)
[2021-09-04] MEDS: MIRABEGRON 50 MG ER TABLET PO (16:05)
[2021-09-04] MEDS: EZETIMIBE 10 MG TABLET PO (16:06)
[2021-09-04] MEDS: ESCITALOPRAM OXALATE 10 MG TABLET PO (16:06)
[2021-09-04] MEDS: VITAMIN B COMPLEX/VIT C CAPSULE 1 EACH PO (16:06)
--- NOTE | 2021-09-04 17:13 | PM.IMPN ---
Progress Note: A&P Assessment and Plan (1) Acute cholecystitis: Code(s): K81.0 - Acute cholecystitis Status: Acute Assessment and Plan: History and imaging are consistent with acute cholecystitis and she has been started on levofloxacinAnd Flagyl. Dr. Ko recommends cholecystectomy though she is anticoagulated and thus she will be given vitamin K and her warfarin will be held to allow her INR to drift down. Analgesics available as needed. received vitamin K INR 1.4. Status post cholecystectomy (2) Abnormal urinalysis: Code(s): R82.90 - Unspecified abnormal findings in urine Status: Acute Assessment and Plan: Patient has no signs or symptoms of urinary tract infection though she has a neurogenic bladder and does straight cath at home. continue Levaquin Urine culture with E coli. 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 Warfarin currently on hold to allow INR to drift down before surgery. status post surgery On Lovenox for DVT prophylaxis in perioperative period. Resume warfarin when deemed appropriate by the surgical team Plan replace potassium Subjective Date/time seen: 09/04/21 17:13 Interval history: seen after the surgery. Reports she is sore. Denies any nausea vomiting. Review of Systems Review of Systems: All systems reviewed & are unremarkable except as noted in HPI and below Exam Narrative: General:??No acute distress, alert and oriented per baseline HEENT:? Atraumatic, normocephalic, mucous membranes moist CV:? Regular rate and rhythm, S1, S2 Lungs:? Clear to auscultation bilaterally, no rales or crackles noted, no wheezes, good air entry Abdomen:? Soft, surgical site clean and intact, mild expected tenderness noted Extremities:? Normal to inspection Skin:? No rashes noted, no lesions or wounds seen Psych:? Euthymic, normal affect Objective Data Vital Signs Vital Signs: Vital Signs - 24 hr 09/03/21 20:00 09/04/21 08:46 09/04/21 09:30 Temperature 98.1 F Pulse Rate 84 85 Respiratory Rate 18 Blood Pressure 130/62 Pulse Oximetry 96 Oxygen Delivery Room Air Room Air Oxygen Flow Rate 09/04/21 08:00 09/04/21 12:00 09/04/21 12:13 Temperature 98.7 F Pulse Rate 85 62 64 Respiratory Rate 18 18 12 Blood Pressure 125/56 L 120/54 L Pulse Oximetry 96 100 100 Oxygen Delivery Room Air Simple Face Mask Simple Face Mask Oxygen Flow Rate 8 8 09/04/21 12:30 09/04/21 12:45 09/04/21 12:55 Temperature Pulse Rate 73 74 70 Respiratory Rate 14 12 16 Blood Pressure 121/69 124/59 L 126/65 Pulse Oximetry 99 97 96 Oxygen Delivery Room Air Room Air Room Air Oxygen Flow Rate 09/04/21 12:57 09/04/21 13:12 09/04/21 13:42 Temperature 97.4 F L 97.6 F 97.7 F Pulse Rate 65 71 73 Respiratory Rate 15 15 16 Blood Pressure 127/61 129/62 115/72 Pulse Oximetry 100 99 100 Oxygen Delivery Oxygen Flow Rate 09/04/21 14:42 Temperature 97.8 F Pulse Rate 70 Respiratory Rate 16 Blood Pressure 110/69 Pulse Oximetry 98 Oxygen Delivery Oxygen Flow Rate Intake/Output Intake/Output: Intake & Output 09/01/21 09/02/21 09/03/21 09/04/21 23:59 23:59 23:59 23:59 Intake Total 1450 3361 2744 1950 Output Total 1200 1875 3225 Balance 1450 2161 869 127 Meds/Results Medications: Active Medications Generic Name Dose Route Start Last Admin Trade Name Freq PRN Reason Stop Dose Admin Acetaminophen 650 mg 09/01/21 22:09 09/02/21 00:12 Acetaminophen 325 Mg Tablet PO 650 mg Q6H PRN Administration Mild Pain (1-3) or Fever Hydrocodone Bitart/Acetaminophen 1 tab 09/04/21 12:57 Hydrocodone/Acetaminophen (*Crx) 5-325 Mg Tablet PO Q4H PRN Pain Rated 4-6 Hydrocodone Bitart/Michael
[2021-09-04] MEDS: BACLOFEN 10 MG TABLET 30 MG PO (17:47)
[2021-09-04] MEDS: PRIMIDONE 250 MG TABLET PO (17:47)
[2021-09-04] MEDS: clonazePAM (*CRX) 0.5 MG TABLET PO (17:49)
[2021-09-05] MEDS: HYDROcodone/acetaminophen (*CRX) 5-325 MG TABLET 1 TAB PO (01:39)
[2021-09-05] MEDS: metroNIDAZOLE 500 MG/ISO 100ML 500 MG/100 ML BAG 100 MG IVPB ×4 (03:20→21:34)
[2021-09-05 05:54] LABS: Basophils Percent Auto 0.4 % (0.2-1.2); Eosinophils Absolute Auto 0.2 K/mm3 (0-0.3); Eosinophils Percent Auto 1.8 % (0-4.4); Hematocrit 41.2 % (37.0-47.0); Immature Granulocyte Absolute 0.05 K/mm3 (0.00-0.031); Immature Granulocyte Percent A 0.5 % (0-0.5); Lymphocytes Absolute Auto 0.47 K/mm3 (0.9-3.2); Lymphocytes Percent Auto 4.6 % (18.3-44.2); Mean Corpuscular Hemoglobin 32.9 pg (26-34); Mean Corpuscular Volume 96.7 fl (80-100); Mean Platelet Volume 10.6 fl (7.4-10.4); Monocytes Absolute Auto 1.4 K/mm3 (0.1-0.6); Monocytes Percent Auto 13.6 % (2.6-8.5); Neutrophils Absolute Auto 8.2 K/mm3 (1.3-6.7); Neutrophils Percent Auto 79.1 % (45.5-73.1); Platelet Count Result 157 k/mm3 (150-375); Red Blood Count 4.26 M/mm3 (4.2-5.4); Red Cell Distribution Width 15.1 % (11.5-14.5); White Blood Count 10.3 K/mm3 (4.5-10.0)
[2021-09-05 06:00] VITALS: BP 116/74; PULSE 108; RESP 18; TEMP 36.8; O2SAT 95
[2021-09-05 06:00] LABS: INR 1.2; Prothrombin Time 14.5 Seconds (11.1-14.7)
[2021-09-05 06:08] LABS: Alanine Aminotransferase 34 U/L (6-35); Alkaline Phosphatase 127 U/L (38-126); Anion Gap 9 mmol/L (8-16); Aspartate Amino Transferase 45 U/L (14-36); Bilirubin,Total 0.7 mg/dL (0.2-1.3); Blood Urea Nitrogen 3 mg/dL (7-17); Carbon Dioxide 24 mmol/L (22-30); Chloride 102 mmol/L (98-107); Estimated CRCL calculation 153 ml/min; Estimated Glomerular Filt Rate > 60; Glucose 111 mg/dL (65-110); Magnesium 1.6 mg/dL (1.6-2.3); Potassium 3.6 mmol/L (3.4-5.0); Sodium 135 mmol/L (137-145)
[2021-09-05 08:51] VITALS: O2SAT 96
[2021-09-05] MEDS: BACLOFEN 10 MG TABLET 30 MG PO ×2 (09:28→17:15)
[2021-09-05 09:29] VITALS: PULSE 92
[2021-09-05] MEDS: ENOXAPARIN 40 MG/0.4 ML SYRINGE SUB-Q (09:29)
[2021-09-05] MEDS: PRIMIDONE 250 MG TABLET PO ×2 (09:29→17:15)
[2021-09-05] MEDS: PROPRANOLOL HCL 60 MG CAPSULE CR PO (09:29)
[2021-09-05] MEDS: DOCUSATE SODIUM 100 MG CAPSULE 200 MG PO (09:32)
[2021-09-05] MEDS: clonazePAM (*CRX) 0.5 MG TABLET PO ×2 (09:32→17:15)
[2021-09-05] MEDS: VITAMIN B COMPLEX/VIT C CAPSULE 1 EACH PO (10:46)
[2021-09-05] MEDS: CHOLECALCIFEROL 1,000 UNITS TABLET 5000 UNITS PO (10:46)
[2021-09-05] MEDS: EZETIMIBE 10 MG TABLET PO (10:46)
[2021-09-05] MEDS: MIRABEGRON 50 MG ER TABLET PO (10:46)
[2021-09-05] MEDS: ESCITALOPRAM OXALATE 10 MG TABLET PO (10:46)
--- NOTE | 2021-09-05 11:23 | PCNFU ---
Nutrition Follow-Up Complete: Increased nutrient needs related to wound healing as evidenced by DTPI to both buttocks Goal:Meet nutritional needs. Pt is slowly meeting goal. New goal: 75% po intake of meals. Pt current nutrition is low fat diet. Nutrition recommendation: Add ISABELA BID for wound healing, mix with white soda Last recorded weight is 118.8 kg - up 10kg since admission. Bowel Motility: +BM 09/04 Labs Reviewed: Alb:3.0, NA:135, BUN:3, Cr:0.4, glu:111 Meds Noted: colace, zofran Skin:DTPI to both buttocks Additional Notes: pt diet upgraded from clears to low fat, reports poor appetite and tolerance still but is slowly improving. Agreed to ISABELA BID mixed with white soda. Agree with diet orders. Monitor intake, wt, labs, skin. Follow up in 5 days.
--- NOTE | 2021-09-05 11:41 | PM.PNGS ---
Progress Note: A&P Assessment and Plan (1) Acute gangrenous appendicitis: Code(s): K35.891 - Other acute appendicitis without perforation, with gangrene Status: Acute Assessment and Plan: Doing well on POD#1. OK to discharge today if tolerating lunch. Would recommend 3-5 days more of antibiotics. OK to resume anticoagulation today. Follow up in office in 2 weeks. 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 Nauseated at breakfast, but no vomiting and otherwise tolerating diet. Says it was the turkey sausage, but she did fine with eggs. Pain controlled. Exam GI: Inspection: non-distended and incision (intact with glue) GI Palp: Yes Soft to palpation, No Tenderness to palpation present (GI) and No Guarding due to palpation present (GI) Objective Data Vital Signs Vital Signs: Vital Signs - 24 hr 09/04/21 12:00 09/04/21 12:13 09/04/21 12:30 Temperature 37.1 C Pulse Rate 62 64 73 Respiratory Rate 18 12 14 Blood Pressure 125/56 L 120/54 L 121/69 Pulse Oximetry 100 100 99 Oxygen Delivery Simple Face Mask Simple Face Mask Room Air Oxygen Flow Rate 8 8 09/04/21 12:45 09/04/21 12:55 09/04/21 12:57 Temperature 36.3 C L Pulse Rate 74 70 65 Respiratory Rate 12 16 15 Blood Pressure 124/59 L 126/65 127/61 Pulse Oximetry 97 96 100 Oxygen Delivery Room Air Room Air Oxygen Flow Rate 09/04/21 13:12 09/04/21 13:42 09/04/21 14:42 Temperature 36.4 C 36.5 C 36.6 C Pulse Rate 71 73 70 Respiratory Rate 15 16 16 Blood Pressure 129/62 115/72 110/69 Pulse Oximetry 99 100 98 Oxygen Delivery Oxygen Flow Rate 09/04/21 21:57 09/05/21 06:00 09/05/21 09:29 Temperature 36.2 C L 36.8 C Pulse Rate 86 108 H 92 Respiratory Rate 17 18 Blood Pressure 124/59 L 116/74 Pulse Oximetry 96 95 Oxygen Delivery Oxygen Flow Rate 09/05/21 08:00 Temperature Pulse Rate Respiratory Rate Blood Pressure Pulse Oximetry Oxygen Delivery Room Air Oxygen Flow Rate Intake/Output Intake/Output: Intake & Output 09/02/21 09/03/21 09/04/21 09/05/21 23:59 23:59 23:59 23:59 Intake Total 3361 2744 2300 660 Output Total 1200 1875 3222 850 Balance 2161 869 -925 -190 Meds/Results Medications: Active Medications Generic Name Dose Route Start Last Admin Trade Name Freq PRN Reason Stop Dose Admin Acetaminophen 650 mg 09/01/21 22:09 09/02/21 00:12 Acetaminophen 325 Mg Tablet PO 650 mg Q6H PRN Administration Mild Pain (1-3) or Fever Hydrocodone Bitart/Acetaminophen 1 tab 09/04/21 12:57 09/05/21 01:39 Hydrocodone/Acetaminophen (*Crx) 5-325 Mg Tablet PO 1 tab Q4H PRN Administration Pain Rated 4-6 Hydrocodone Bitart/Acetaminophen 2 tab 09/04/21 12:57 Hydrocodone/Acetaminophen (*Crx) 5-325 Mg Tablet PO Q4H PRN Pain Rated 7-10 Baclofen 30 mg 09/02/21 09:00 09/05/21 09:28 Baclofen 10 Mg Tablet PO 30 mg BID MARBELLA Administration Calcium Carbonate 1,000 mg 09/02/21 09:00 09/05/21 10:45 Calcium/Vitamin D 500 Mg Tablet PO 10/02/21 08:59 1,000 mg DAILY MARBELLA Administration Clonazepam 0.5 mg 09/02/21 09:00 09/05/21 09:32 Clonazepam (*Crx) 0.5 Mg Tablet PO 0.5 mg BID MARBELLA Administration Docusate Sodium 200 mg 09/02/21 09:00 09/05/21 09:32 Docusate Sodium 100 Mg Capsule PO 200 mg DAILY MARBELLA Administration Ezetimibe 10 mg 09/02/21 09:00 09/05/21 10:46 Ezetimibe 10 Mg Tablet PO 10 mg DAILY MARBELLA Administration Enoxaparin Sodium 40 mg 09/05/21 09:00 09/05/21 09:29 Enoxaparin 40 Mg/0.4 M
[2021-09-05 14:00] VITALS: BP 102/59; PULSE 97; RESP 20; TEMP 36.7; O2SAT 96
--- NOTE | 2021-09-05 14:16 | PM.IMPN ---
Progress Note: A&P Assessment and Plan (1) Acute cholecystitis: Code(s): K81.0 - Acute cholecystitis Status: Acute Assessment and Plan: History and imaging are consistent with acute cholecystitis and she has been started on levofloxacinAnd Flagyl. Dr. Ko recommends cholecystectomy though she is anticoagulated and thus she will be given vitamin K and her warfarin will be held to allow her INR to drift down. Analgesics available as needed. received vitamin K INR 1.4. Status post cholecystectomy Continue antibiotics change to oral at discharge (2) Abnormal urinalysis: Code(s): R82.90 - Unspecified abnormal findings in urine Status: Acute Assessment and Plan: Patient has no signs or symptoms of urinary tract infection though she has a neurogenic bladder and does straight cath at home. continue Levaquin Urine culture with E coli. 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 Warfarin currently on hold to allow INR to drift down before surgery. status post surgery On Lovenox for DVT prophylaxis in perioperative period. Resume warfarin when deemed appropriate by the surgical team. Start tonight okayed by General surgery. Will continue on Lovenox until INR therapeutic Plan replace potassium Subjective Date/time seen: 09/05/21 14:16 Interval history: Postoperative day 1 after his cholecystectomy. Basilar nauseous. Denies any abdominal pain. Not able to tolerate diet. Had bowel movement earlier today. Review of Systems Review of Systems: All systems reviewed & are unremarkable except as noted in HPI and below Exam Narrative: General:??No acute distress, alert and oriented per baseline HEENT:? Atraumatic, normocephalic, mucous membranes moist CV:? Regular rate and rhythm, S1, S2 Lungs:? Clear to auscultation bilaterally, no rales or crackles noted, no wheezes, good air entry Abdomen:? Soft, surgical site clean and intact, mild expected tenderness noted Extremities:? Normal to inspection Skin:? No rashes noted, no lesions or wounds seen Psych:? Euthymic, normal affect Objective Data Vital Signs Vital Signs: Vital Signs - 24 hr 09/04/21 14:42 09/04/21 21:57 09/05/21 06:00 Temperature 97.8 F 97.1 F L 98.3 F Pulse Rate 70 86 108 H Respiratory Rate 16 17 18 Blood Pressure 110/69 124/59 L 116/74 Pulse Oximetry 98 96 95 Oxygen Delivery 09/05/21 09:29 09/05/21 08:00 Temperature Pulse Rate 92 Respiratory Rate Blood Pressure Pulse Oximetry Oxygen Delivery Room Air Intake/Output Intake/Output: Intake & Output 09/02/21 09/03/21 09/04/21 09/05/21 23:59 23:59 23:59 23:59 Intake Total 3361 2744 2300 660 Output Total 1200 4506 3222 850 Balance 2161 869 -925 -190 Meds/Results Medications: Active Medications Generic Name Dose Route Start Last Admin Trade Name Freq PRN Reason Stop Dose Admin Acetaminophen 650 mg 09/01/21 22:09 09/02/21 00:12 Acetaminophen 325 Mg Tablet PO 650 mg Q6H PRN Administration Mild Pain (1-3) or Fever Hydrocodone Bitart/Acetaminophen 1 tab 09/04/21 12:57 09/05/21 01:39 Hydrocodone/Acetaminophen (*Crx) 5-325 Mg Tablet PO 1 tab Q4H PRN Administration Pain Rated 4-6 Hydrocodone Bitart/Acetaminophen 2 tab 09/04/21 12:57 Hydrocodone/Acetaminophen (*Crx) 5-325 Mg Tablet PO Q4H PRN Pain Rated 7-10 Baclofen 30 mg 09/02/21 09:00 09/05/21 09:28 Baclofen 10 Mg Tablet PO 30 mg BID MARBELLA Administration Calcium Carbonate 1,000 mg 09/02/21 09:00 09/05/21 10:45 Calcium/Vitamin D 500 Mg Tablet PO 10/02/21 08:59 1,000 mg DAILY MARBELLA Administration Clonazepam 0.5 mg 09/02/21 09:00 09/05/21 09:32 Clonazepam (*Crx) 0.5 Mg Tablet PO 0.5 mg B
[2021-09-05] MEDS: ONDANSETRON INJ 4 MG/2 ML VIAL IV PUSH (14:20)
[2021-09-05] MEDS: WARFARIN (*PBKC) 1 MG TABLET PO (17:15)
[2021-09-05] MEDS: WARFARIN (*PBKC) 10 MG TABLET PO (17:16)
[2021-09-05 22:00] VITALS: BP 92/51; PULSE 95; RESP 16; TEMP 37.7; O2SAT 93
[2021-09-06] MEDS: metroNIDAZOLE 500 MG/ISO 100ML 500 MG/100 ML BAG 100 MG IVPB ×2 (03:40→08:49)
[2021-09-06 06:00] VITALS: BP 117/49; PULSE 87; RESP 16; TEMP 37.2; O2SAT 93
[2021-09-06 06:28] LABS: Basophils Percent Auto 0.3 % (0.2-1.2); Eosinophils Absolute Auto 0.1 K/mm3 (0-0.3); Eosinophils Percent Auto 1.3 % (0-4.4); Hematocrit 37.3 % (37.0-47.0); Hemoglobin 12.4 g/dL (12.0-15.0); Immature Granulocyte Absolute 0.07 K/mm3 (0.00-0.031); Immature Granulocyte Percent A 0.8 % (0-0.5); Lymphocytes Absolute Auto 0.69 K/mm3 (0.9-3.2); Lymphocytes Percent Auto 7.9 % (18.3-44.2); Mean Corpuscular HGB Conc 33.2 g/dl (32-36); Mean Corpuscular Hemoglobin 32.5 pg (26-34); Mean Corpuscular Volume 97.9 fl (80-100); Mean Platelet Volume 10.6 fl (7.4-10.4); Monocytes Absolute Auto 1.3 K/mm3 (0.1-0.6); Monocytes Percent Auto 15.1 % (2.6-8.5); Neutrophils Absolute Auto 6.5 K/mm3 (1.3-6.7); Neutrophils Percent Auto 74.6 % (45.5-73.1); Platelet Count Result 164 k/mm3 (150-375); Red Blood Count 3.81 M/mm3 (4.2-5.4); Red Cell Distribution Width 15.2 % (11.5-14.5); White Blood Count 8.8 K/mm3 (4.5-10.0)
[2021-09-06 06:30] LABS: INR 1.3; Prothrombin Time 15.7 Seconds (11.1-14.7)
[2021-09-06 06:38] LABS: Alanine Aminotransferase 24 U/L (6-35); Albumin Level 2.7 g/dL (3.5-5.1); Alkaline Phosphatase 88 U/L (38-126); Anion Gap 4 mmol/L (8-16); Aspartate Amino Transferase 24 U/L (14-36); Bilirubin,Total 0.4 mg/dL (0.2-1.3); Blood Urea Nitrogen 3 mg/dL (7-17); Carbon Dioxide 30 mmol/L (22-30); Chloride 105 mmol/L (98-107); Estimated CRCL calculation 147 ml/min; Estimated Glomerular Filt Rate > 60; Glucose 107 mg/dL (65-110); Magnesium 1.7 mg/dL (1.6-2.3); Potassium 3.2 mmol/L (3.4-5.0); Sodium 139 mmol/L (137-145)
[2021-09-06 08:47] VITALS: PULSE 80
[2021-09-06] MEDS: PRIMIDONE 250 MG TABLET PO (08:47)
[2021-09-06] MEDS: POTASSIUM CHLORIDE 20 MEQ TABLET 40 MEQ PO (08:47)
[2021-09-06] MEDS: DOCUSATE SODIUM 100 MG CAPSULE 200 MG PO (08:47)
[2021-09-06] MEDS: CHOLECALCIFEROL 1,000 UNITS TABLET 5000 UNITS PO (08:47)
[2021-09-06] MEDS: PROPRANOLOL HCL 60 MG CAPSULE CR PO (08:47)
[2021-09-06] MEDS: clonazePAM (*CRX) 0.5 MG TABLET PO (08:48)
[2021-09-06] MEDS: ENOXAPARIN 40 MG/0.4 ML SYRINGE SUB-Q (08:48)
[2021-09-06] MEDS: MIRABEGRON 50 MG ER TABLET PO (08:48)
[2021-09-06] MEDS: ESCITALOPRAM OXALATE 10 MG TABLET PO (08:48)
[2021-09-06] MEDS: EZETIMIBE 10 MG TABLET PO (08:48)
[2021-09-06] MEDS: BACLOFEN 10 MG TABLET 30 MG PO (08:48)
[2021-09-06] MEDS: VITAMIN B COMPLEX/VIT C CAPSULE 1 EACH PO (08:49)
--- NOTE | 2021-09-06 12:02 | PM.DS ---
DS: Admitting Diagnosis Discharge Date 09/06/2021 Admitting Diagnosis Acute cholecystitis DS: Discharge Diagnosis Discharge Diagnosis (1) Acute cholecystitis: Code(s): K81.0 - Acute cholecystitis Status: Acute Assessment and Plan: History and imaging are consistent with acute cholecystitis and she has been started on levofloxacin And Flagyl. Dr. Ko recommends cholecystectomy and was. Once INR is low he underwent cholecystectomy 09/04/21. She was started on IV Levaquin and Flagyl and plan to change to oral and discharge for 5 more days Continue antibiotics change to oral at discharge See was continued on jessica operative Lovenox for DVT prophylaxis will be continued until INR reaches therapeutic level upon discharge (2) Abnormal urinalysis: Code(s): R82.90 - Unspecified abnormal findings in urine Status: Acute Assessment and Plan: Patient has no signs or symptoms of urinary tract infection though she has a neurogenic bladder and does straight cath at home. continue Levaquin Urine culture with E coli. 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 Warfarin currently on hold to allow INR to drift down before surgery. status post surgery On Lovenox for DVT prophylaxis in perioperative period. Warfarin 09/05/2021 Will continue Lovenox DVT prophylaxis dose perioperatively until INR therapeutic due to her history of recurrent DVTs in the past Due to interaction with Levaquin and Flagyl with Coumadin anticipate to be rather weekly. She has a home INR monitoring system and will monitor INR at home. She is advised to stop her Lovenox shot once INR is at least more than 1.8. Plan replace potassium DS: Summary Hospital Course Hospital Course: See above Time Spent with Patient Time attestation: Total time spent providing and/or coordinating discharge services: 45 minutes Exam Narrative: General:??No acute distress, alert and oriented per baseline HEENT:? Atraumatic, normocephalic, mucous membranes moist CV:? Regular rate and rhythm, S1, S2 Lungs:? Clear to auscultation bilaterally, no rales or crackles noted, no wheezes, good air entry Abdomen:? Soft, surgical site clean and intact, mild expected tenderness noted Extremities:? Normal to inspection Skin:? No rashes noted, no lesions or wounds seen Psych:? Euthymic, normal affect DS: Data Data Completed and Pending Completed studies during hospitalization: Pending at discharge 09/04/21 10:50 Surgical [PTH] Routine Labs on day of discharge: Labs from last 24 hours 09/06/21 09/06/21 09/06/21 06:01 06:01 06:01 WBC 8.8 RBC 3.81 L Hgb 12.4 Hct 37.3 MCV 97.9 MCH 32.5 MCHC 33.2 RDW 15.2 H Plt Count 164 MPV 10.6 H Immature Gran % (Auto) 0.8 H Neut % (Auto) 74.6 H Lymph % (Auto) 7.9 L Mcdonald % (Auto) 15.1 H Eos % (Auto) 1.3 Baso % (Auto) 0.3 Lymph # (Auto) 0.69 L Mcdonald # (Auto) 1.3 H Eos # (Auto) 0.1 Baso # (Auto) 0.0 Abs Immat Gran (auto) 0.07 H Absolute Neuts (auto) 6.5 Absolute Nucleated RBC 0.0 Nucleated RBC % 0.0 PT 15.7 H INR 1.3 Sodium 139 Potassium 3.2 L Chloride 105 Carbon Dioxide 30 Anion Gap 4 L BUN 3 L Creatinine 0.40 L Estim Creat Clear Calc 147 Estimated GFR > 60 Glucose 107 Calcium 8.0 L Magnesium 1.7 Total Bilirubin 0.4 AST 24 ALT 24 Alkaline Phosphatase 88 Total Protein 5.0 L Albumin 2.7 L Procedures/Treatments: Procedure Note - Detailed Date of Procedure 09/04/21 Pre-op Diagnosis Acute calculous cholecystitis Post-op Diagnosis Other (Acute gangrenous cholecystitis) Procedure Performed Laparoscopic Cholecystectomy Surgeon Orlin Marcelo
== END 2021-09-06 15:15 | disposition home health service (06) | DRG 418 ==
LOC: ANHED 15:38 → ANH3MEDSUR 16:42
PROVIDERS: Student in an Organized Health Care Education/Training Program; Surgery; Admitting Provider Family Medicine; Emergency Provider Emergency Medicine; PCP Internal Medicine; Visit Provider Internal Medicine
PROC: 0FT44ZZ Resection of Gallbladder, Percutaneous Endoscopic Approach (ICD-10-PCS; CPT 47562; principal; 2021-09-04 10:30)
DX: K80.00 Calculus of gallbladder with acute cholecystitis without obstruction (principal); N39.0 Urinary tract infection, site not specified; K82.A1 Gangrene of gallbladder in cholecystitis; K82.8 Other specified diseases of gallbladder; B96.20 Unspecified Escherichia coli [E. coli] as the cause of diseases classified elsewhere; G35 Multiple sclerosis; N31.9 Neuromuscular dysfunction of bladder, unspecified; E78.5 Hyperlipidemia, unspecified; Z20.822 Contact with and (suspected) exposure to COVID-19; Z79.01 Long term (current) use of anticoagulants; Z79.899 Other long term (current) drug therapy; Z86.718 Personal history of other venous thrombosis and embolism; Z88.0 Allergy status to penicillin; Z88.2 Allergy status to sulfonamides; Z74.01 Bed confinement status; Z99.3 Dependence on wheelchair
CPT/HCPCS: 36415; 51701; 74177; 80053; 81001; 83690; 83735; 85025; 85055; 85610; 85730; 86850; 86880; 86900; 86901; 86902; 87077; 87086; 87186; 88304; 96361; 96365; 96366; 96367; 96375; 99285; A9270; C9803; G0378; J0131; J1650; J1956; J2250; J2270; J2405; J2704; J3010; J3430; J3480; J7030; J7040; J7120; Q9967; U0003; U0005

== ENCOUNTER 2021-09-30 10:24 | Outpatient (CLI) | payer MEDICARE, SELFPAY | END 2021-09-30 10:25 | disposition home or self-care (01) | PROVIDERS: PCP Internal Medicine; Visit Provider Urology | DX: N31.9 Neuromuscular dysfunction of bladder, unspecified (principal); Z01.818 Encounter for other preprocedural examination | CPT/HCPCS: 87086 ==

== ENCOUNTER 2021-10-03 00:33 | Day surgery (SDC) | payer MEDICARE, MEDICAID, SELFPAY ==
--- NOTE | 2021-09-19 09:58 | PM.IMHP ---
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 Depression History of DVT (deep vein thrombosis) Hyperlipidemia Kidney stones Multiple sclerosis Neurogenic bladder Neurogenic bladder Reflex neurogenic bladder Wheelchair bound Surgical History Surgical History History of cystoscopy History of hysterectomy History of lithotripsy History of removal of cyst Left foot. History of tonsillectomy and adenoidectomy History of vascular surgery Right leg venous cut down. Family History Family History Father Gallbladder disease Social History Social History Social History: Surrogate medical decision maker: Dirk Camacho, son. Code status: Full code. Smoking status: Former smoker Additional smoking assessment comments: Smoked socially greater than 35 years ago. Alcohol intake: never Substance use: never Additional living arrangements comments: The patient lives in her own home. She has 2 grown children. Additional occupation/education comments: Disabled. Spiritual care concerns: No Meds Home Medications and Allergies Home Medications Medication Instructions Recorded Confirmed Type Ocrevus 1 dose IV .[id number] 10/10/19 09/01/21 History baclofen 10 mg tablet 30 mg PO BID 10/10/19 09/01/21 History calcium carbonate 600 mg-vitamin 2 tablet PO DAILY 10/10/19 09/01/21 History D3 5 mcg (200 unit) tablet (Calcium 600 + D(3)) cholecalciferol (vitamin D3) 125 125 mcg PO DAILY 10/10/19 09/01/21 History mcg (5,000 unit) tablet (Vitamin D3) escitalopram oxalate 10 mg tablet 10 mg PO DAILY 10/10/19 09/01/21 History ezetimibe 10 mg tablet 10 mg PO DAILY 10/10/19 09/01/21 History flaxseed oil 1,000 mg capsule 1,000 mg PO BID 10/10/19 09/01/21 History mirabegron 50 mg tablet,extended 50 mg PO DAILY 10/10/19 09/01/21 History release 24 hr (Myrbetriq) vitamin B comp and C no.3 15 mg-10 1 cap PO DAILY 10/10/19 09/01/21 History mg-50 mg-5 mg-300 mg capsule warfarin 10 mg tablet 11 mg PO DAILY 10/10/19 09/01/21 History clonazepam 0.5 mg tablet 0.5 mg PO BID 10/11/19 09/01/21 History docusate sodium 100 mg capsule 200 mg PO DAILY 10/11/19 09/01/21 History (Colace) glycerin (adult) 1 supp RECTAL .Q3D 10/11/19 09/01/21 History ketoconazole 2 % shampoo 1 applic topical 3XW 10/11/19 09/01/21 History ketoconazole 2 % topical cream 1 applic topical 3XW 10/11/19 09/01/21 History primidone 250 mg tablet 250 mg PO BID 10/11/19 09/01/21 History propranolol 60 mg capsule,24 60 mg PO DAILY 08/09/20 09/01/21 History hr,extended release hydrocodone 5 mg-acetaminophen 325 1 tablet PO Q4H PRN Pain Rated 4-6 09/05/21 Rx mg tablet #20 tabs bisacodyl 5 mg tablet,delayed 5 mg PO HS 30 days #30 tabs 09/06/21 Rx release (Dulcolax (bisacodyl)) enoxaparin 40 mg/0.4 mL 40 mg (0.4 mL) subcut DAILY #7 mL 09/06/21 Rx subcutaneous syringe (Lovenox) levofloxacin 750 mg tablet 750 mg PO DAILY #5 tabs 09/06/21 Rx metronidazole 500 mg tablet 500 mg PO Q8H #15 tabs 09/06/21 Rx ondansetron 4 mg disintegrating 4 mg PO Q8H PRN nausea and 09/06/21 Rx tablet vomiting #30 tabs polyethylene glycol 3350 17 17 g PO DAILY #119 grams 09/06/21 Rx gram/dose oral powder (Miralax) Allergies Allergy/AdvReac Type Severity Reaction Status Date / Time Sulfa (Sulfonamide Allergy Mild WATSON, naus
--- NOTE | 2021-09-29 12:11 | PC.NURSE ---
Report to the Outpatient Waiting Room, entrance under the green pavilion located off [facility], at time 0615 on date 10/03/21. OR Time: 0815. - You and your visitor will be asked to self-screen and do not enter if you have any COVID symptoms. - Only one visitor and NO children visitors are allowed at this time. - The patient visitor is requested to leave or wait in car when not with patient due to restrictions. - A mask is required within the hospital. Patients may have clear liquids (water, carbonated beverages, clear teas, apple juice) until 3 hours prior to surgery with a maximum of 20 ounces. - No food from midnight until time of surgery Take the following medications with a SIP of water the morning of surgery: CLONAZEPAM, ESCITALOPRAM, PRIMIDONE, PROPRANOLOL Medications to discontinue per physician: VITAMINS/SUPPLEMENTS Date to take last dose: 09/29/[address] L[address]'S INSTRUCTIONS Please no make-up, nail kyrgyz, hairspray, perfume, deodorant, or body powder the day of surgery. No jewelry (including any body piercings) or valuables the day of surgery, leave them at home. Please take a shower or bath the night before, or the morning of, surgery with an antibacterial soap. Wear comfortable, loose fitting clothing. - Jewelry must be removed prior to entering the operating room. Rings and piercings that are not removed may be cut off. - The hospital will not accept responsibility for valuables. - Please leave all valuables, including medications, at home the day of surgery. If you are going home after surgery, a licensed route cdl driver must drive you home. - NO public transportation without another adult. - We recommend that an adult stay with you for 24 hours following discharge. - We also recommend that you do not drive, make important decision, drink alcoholic beverages, or take any drugs that were not prescribed by your health care provider for at least 24 hours after your discharge time. Follow any additional instructions given to you from your surgeon. If you or anyone in your household have experienced Covid symptoms in the past week, please notify your surgeon or the nurse liaison at the phone number below for possible testing. Telephone instructions given to MEDINA ALVARES and asked if any additional questions and then verbalized understanding. Patient advised to call surgeon office or pre surgery nurse liaison [phone] if any additional questions.
--- NOTE | 2021-10-02 14:00 | WPDANESEPPF ---
Anes - Initial Pre Proc Eval Procedure: Operation Date: 10/03/21 08:15 Proposed Procedures p Cystoscopy, Botox Injection 300 units - Serg Jones MD Date/Time: 10/02/21 14:00 Surgeon: Serg Jones MD Pre Op Diagnosis: Neuropathic Bladder Patient Data Age: 60 Gender: F Height: 1.66 m Weight: Allergies Allergy/AdvReac Type Severity Reaction Status Date / Time naproxen Allergy Mild CANNOT Verified 10/03/21 07:02 TAKE R/T WARFARIN Penicillins Allergy Mild Rash Verified 10/03/21 07:02 Sulfa (Sulfonamide Allergy Mild WATSON, nausea Verified 10/03/21 07:02 Antibiotics) Home Medications Medication Instructions Recorded Confirmed Type Ocrevus 1 dose IV .[id number] 10/10/19 09/29/21 History baclofen 10 mg tablet 30 mg PO BID 10/10/19 10/03/21 History calcium carbonate 600 mg-vitamin 2 tablet PO DAILY 10/10/19 10/03/21 History D3 5 mcg (200 unit) tablet (Calcium 600 + D(3)) cholecalciferol (vitamin D3) 125 125 mcg PO DAILY 10/10/19 10/03/21 History mcg (5,000 unit) tablet (Vitamin D3) escitalopram oxalate 10 mg tablet 10 mg PO DAILY 10/10/19 10/03/21 History ezetimibe 10 mg tablet 10 mg PO DAILY 10/10/19 10/03/21 History flaxseed oil 1,000 mg capsule 1,000 mg PO BID 10/10/19 10/03/21 History mirabegron 50 mg tablet,extended 50 mg PO DAILY 10/10/19 10/03/21 History release 24 hr (Myrbetriq) vitamin B comp and C no.3 15 mg-10 1 cap PO DAILY 10/10/19 10/03/21 History mg-50 mg-5 mg-300 mg capsule warfarin 10 mg tablet 11 mg PO DAILY 10/10/19 10/03/21 History clonazepam 0.5 mg tablet 0.5 mg PO BID 10/11/19 10/03/21 History docusate sodium 100 mg capsule 200 mg PO DAILY 10/11/19 10/03/21 History (Colace) glycerin (adult) 1 supp RECTAL .Q3D 10/11/19 09/29/21 History ketoconazole 2 % shampoo 1 applic topical 3XW 10/11/19 09/29/21 History ketoconazole 2 % topical cream 1 applic topical 3XW 10/11/19 09/29/21 History primidone 250 mg tablet 250 mg PO BID 10/11/19 10/03/21 History propranolol 60 mg capsule,24 60 mg PO DAILY 08/09/20 10/03/21 History hr,extended release bisacodyl 5 mg tablet,delayed 5 mg PO HS 30 days #30 tabs 09/06/21 10/03/21 Rx release (Dulcolax (bisacodyl)) ondansetron 4 mg disintegrating 4 mg PO Q8H PRN nausea and 09/06/21 09/29/21 Rx tablet vomiting #30 tabs Patient hx anesthesia problems: none Family hx anesthesia problems: none Results Review: All pre-operative results and documents have been reviewed as part of the pre-operative evaluation. [facility] Past Medical History Medical History Anxiety Current use of alf anticoagulation Deep venous thrombosis History of several DVTs in the past. Depression History of DVT (deep vein thrombosis) Hyperlipidemia Kidney stones Multiple sclerosis Neurogenic bladder Neurogenic bladder Reflex neurogenic bladder Wheelchair bound Surgical History Surgical History History of cystoscopy History of hysterectomy History of lithotripsy History of removal of cyst Left foot. History of tonsillectomy and adenoidectomy History of vascular surgery Right leg venous cut down. Family History Family History Father Gallbladder disease Social History Social History Social History: Surrogate medical decision maker: Dirk Camacho, son. Code status: Full code. Smoking status: Former smoker Tobacco type: cigarettes Additional smoking assessment comments: VERY BRIEF WHEN YOUNGER Alcohol intake: never Substance use: never Substance use type: does not use Living arrangements: alone Additional living arrangements comments: The patient lives in her own home. She has 2 grown children. Additional occupation/education comments: Disabled. Spiritual care concerns:
[2021-10-03 06:37] VITALS: BP 105/60; PULSE 65; RESP 16; TEMP 36; O2SAT 100
--- NOTE | 2021-10-03 07:13 | WPDHPUPDATE1 ---
History and Physical Update Update Date/Time: 10/03/21 07:13 History and Physical has been reviewed, including an updated exam of the patient. There are NO changes in the patient's condition. Risks, benefits, and alternatives have been discussed and questions answered. Patient agrees to proceed with procedure.
[2021-10-03] MEDS: LACTATED RINGERS 1,000 ML 30 ML IV CONT (07:37)
[2021-10-03 07:45] LABS: INR 1.1; Prothrombin Time 13.9 Seconds (11.1-14.7)
[2021-10-03] MEDS: ceFAZolin 2 GM/D5W 50 ML 2 GM/50 ML BAG IVPB (08:23)
[2021-10-03] MEDS: BOTULINUM TOXIN TYPE A (*SPLP) 100 UNITS VIAL 300 UNITS XX (08:37)
[2021-10-03] MEDS: LIDOCAINE HCL 2% GEL UROJET 10 ML PKG MUCOUS MEM (08:39)
[2021-10-03 08:49] VITALS: BP 85/38; PULSE 69; RESP 12; O2SAT 99
--- NOTE | 2021-10-03 09:01 | W.PM.PROC2 ---
Procedure Note - Detailed Date of Procedure 10/03/21 Pre-op Diagnosis Neuropathic Bladder Post-op Diagnosis Same Procedure Performed Cystoscopy with injection of Botox 300 units Surgeon Serg Jones MD Anesthesia MAC Indications A woman with neurogenic bladder. Intermittent catheterization is performed. She has had some success with Botox 2 units. We are going to go up to 300 units Findings Spastic neurogenic bladder Description of Procedure She has correctly identified. Informed consent obtained. She from the operating room. She was given MAC anesthesia. She was prepped draped in a sterile fashion. Time-out performed. Cystoscopy revealed a trabeculated bladder with multiple spasms which emptied the bladder. I was finally able to fill the bladder. I mixed 3 in units of Botox and 30 cc preservative-free saline. I injected throughout the bladder in the muscular layer. I did injection the center of the trigone. I did not inject around the ureteral orifices. There was no significant bleeding from injection sites. Uro jet was applied. She was awakened and transferred to PACU in stable condition Estimated Blood Loss 1 Drains No Packing No Complications No immediate complications Condition Stable Disposition PACU
[2021-10-03 09:15] VITALS: BP 102/49; PULSE 67; RESP 20
[2021-10-03 09:45] VITALS: BP 102/49; PULSE 64; RESP 20
== END 2021-10-03 10:10 | disposition home or self-care (01) ==
PROVIDERS: Anesthesiology; PCP Internal Medicine; Visit Provider Urology
PROC: 3E0K8GC Introduction of Other Therapeutic Substance into Genitourinary Tract, Via Natural or Artificial Opening Endoscopic (ICD-10-PCS; CPT 52287; principal; 2021-10-03 08:15)
DX: N31.9 Neuromuscular dysfunction of bladder, unspecified (principal); N31.1 Reflex neuropathic bladder, not elsewhere classified; Z79.01 Long term (current) use of anticoagulants; Z86.718 Personal history of other venous thrombosis and embolism; E78.5 Hyperlipidemia, unspecified; Z87.442 Personal history of urinary calculi; Z99.3 Dependence on wheelchair
CPT/HCPCS: 52287; 36415; 85610; 85730; A9270; J0585; J0690; J2250; J2704; J3010; J7120